=== PATIENT | male | born 2000 | race Caucasian/White ===

== ENCOUNTER 2021-02-10 11:48 | Outpatient (REF) | payer OTHER, SELFPAY ==
--- NOTE | ~2021-02-10 | XR_ITS ---
EXAMINATION: XR SHOULDER, RIGHT CLINICAL INFORMATION: Pain in right shoulder COMPARISON: None TECHNIQUE: AP external rotation, Grashey, scapular Y, and axillary views of the right shoulder. FINDINGS: The bones and soft tissues are normal. No fracture. Glenohumeral and acromioclavicular alignment is anatomic with normal joint space. No abnormal soft tissue calcifications. XR/XR shoulder RT min 2V IMPRESSION: Normal right shoulder.
== END 2021-02-10 11:49 | disposition home or self-care (01) ==
LOC: HO.HMGCX 11:48
PROVIDERS: PCP Internal Medicine; Visit Provider Internal Medicine
DX: Z13.89 Encounter for screening for other disorder (principal)
CPT/HCPCS: 73030

== ENCOUNTER → 2021-03-24 14:47 | Outpatient (BNVA) | payer OTHER, SELFPAY | PROVIDERS: Visit Provider Physician Assistant | DX: M75.101 Unspecified rotator cuff tear or rupture of right shoulder, not specified as traumatic (principal) | CPT/HCPCS: 99202 ==

== ENCOUNTER 2021-04-13 14:22 | Outpatient (REF) | payer OTHER, SELFPAY ==
--- NOTE | ~2021-04-13 | MR_ITS ---
EXAMINATION: MR SHOULDER WITHOUT CONTRAST, RIGHT CLINICAL INFORMATION: Right shoulder injury in July 2020. Pain, decreased strength, weakness, finger paresthesias. Evaluate for a rotator cuff tendon tear. COMPARISON: Right shoulder radiographs dated 02/10/2021. TECHNIQUE: MRI of the shoulder without contrast was performed on a high-field scanner. FINDINGS: ROTATOR CUFF: Intact. No muscle atrophy or fatty infiltration. BICEPS: Normal. CORACOACROMIAL ARCH: The undersurface of the acromion is curved with no subacromial spur. The acromioclavicular joint is normal. LABRUM/CAPSULE: Normal. GLENOHUMERAL JOINT/MARROW: Normal. MR/MR shoulder RT wo con IMPRESSION: Unremarkable examination. No rotator cuff or labral injury.
== END 2021-04-13 14:23 | disposition home or self-care (01) ==
LOC: HO.MRI 14:22
PROVIDERS: PCP Internal Medicine; Visit Provider Physician Assistant
DX: M75.101 Unspecified rotator cuff tear or rupture of right shoulder, not specified as traumatic (principal)
CPT/HCPCS: 73221

== ENCOUNTER → 2021-04-24 13:18 | Outpatient (BNVA) | payer OTHER, SELFPAY | PROVIDERS: PCP Internal Medicine; Visit Provider Physician Assistant | DX: S43.431D Superior glenoid labrum lesion of right shoulder, subsequent encounter (principal) | CPT/HCPCS: 99212 ==

== ENCOUNTER 2021-05-05 15:00 | Outpatient (RCR) | payer OTHER, SELFPAY ==
--- NOTE | 2020-12-06 15:39 | MHC.PT.EP ---
[facility] [place] Office [place] Office [place] Office [address] [phone] F: [phone] F: [phone] F: [phone] F: [phone] Physical Therapy Plan of Care Date of Evaluation: Date of Surgery: Diagnosis: This is a 20 yo male presenting to skilled PT with a script for pain in the R shoulder Assessment: Patient is here at eval today reporting pain that is intermittent when lifting or pushing OH since a fall snowboarding last winter (July). Feel onto the shoulder. Unable to lift right after the injury but did not go to MD until last month. No imaging. Never injured this prior. RHD. Does not remember than popping or clicking but did have bruising. Examination demos decreased end range shoulder flexion and abduction ROM, impaired IR with scratch test and inferior glide, decreased shoulder flexion/abd and scapular strength and + for ACJ special tests. S/S ? ACJ involvement. Patient works for [employer] and is going away for a 2 week training x2. Plan to introduce HEP next session in the mean time and perform a reassessment when he returns. He is a great candidate for skilled PT 2x/wk for 6wks in order to improve functional end range motion, pain and joint mobility. Frequency and Duration: The patient will be seen 2x/wk for 6wks Short Term Goals: I in HEP End range ROM WNL and nonpainful proper scapular recruitment without cuing from PT Fpc Goals: scapular strength of 4+/5 SPADI improved by at least 10 points demo lifting and reaching with proper techniques and no pain Treatment Plan: Modalities to reduce pain, spasms and effusion. Manual therapy to restore motion and function. Therapeutic exercise to improve strength and flexibility. Neuromuscular re-education for posture and balance. Therapeutic activities to return to functional activities of daily living. Electronically signed by: Halima Samaniego PT Please sign and return to therapist. Thank you for your referral.
--- NOTE | 2021-05-05 15:57 | MHC.PT.DC ---
[facility] [place] Office [place] Office [place] Office [address] Michelle [place] 140 [facility] [phone] F: [phone] F: [phone] F: [phone] F: [phone] Physical Therapy Discharge Report Diagnosis: This is a 20 yo male presenting to skilled PT with a script for pain in the R shoulder Date of Surgery: Date of Evaluation: 12/06/20 Date of Discharge: 05/05/21 Treatments to Date: 24 Cancellations to Date: 3 No Shows to Date: 1 Discharge Status: Achieved Goals Improved Function Independent with HEP Physician Discontinued Tx Discharge Summary: Patient demos normal ROM and good strength. He will be getting exploratory surgery. Educated him on continuing HEP in the mean time to maintain gains in strength prior to surgery. DC to HEP at this time. Patient has met most of his goals. Electronically signed by: Halima Samaniego PT Please sign and return to therapist. Thank you for your referral.
== END 2021-05-05 15:57 | disposition home or self-care (01) ==
LOC: HO.PTCHIC 15:00
PROVIDERS: PCP Internal Medicine; Visit Provider Internal Medicine
DX: M25.511 Pain in right shoulder (principal)
CPT/HCPCS: 97110; 97140; 97161; 97164

== ENCOUNTER 2021-06-06 07:20 | Day surgery (SDC) | payer OTHER, SELFPAY ==
--- NOTE | 2021-06-05 15:18 | P.CONAN_ITS ---
Documented by User: Reshma Chau NP 06/05/21 15:18 HPI - Anesthesia Eval Consult details Narrative: 20yo M for Right Shoulder Capsular Pilcation Arthroscopy [facility] Active Problems Active Problems: All Active Problems (Updated 04/24/21 @ 15:12 by Annelise Goel PA-C) Injury of superior glenoid labrum of right shoulder (Acute) Painful arc syndrome of right shoulder (Acute) Knee pain, right (Acute) Annual physical exam (Acute) Right shoulder pain (Acute) Past Medical History Medical History (Updated 06/06/21 @ 07:52 by Daniela Peralta RN) Annual physical exam Finger abrasion Knee pain, right Right shoulder pain Family History Family History Father No problems noted. Mother No problems noted. Surgical History Surgical History (Updated 06/06/21 @ 07:52 by Daniela Peralta RN) H/O wisdom tooth extraction Social History Social History Household Members Other:: in 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 Meds Allergies Allergy/AdvReac Type Severity Reaction Status Date / Time No Known Allergies Allergy Verified 06/06/21 07:53 Home Medications Medication Instructions Recorded Confirmed Last Taken Type No Known Home Meds 11/01/20 02/10/21 Unknown History Exam Exam Date and Time: June 05, 2021 1518 Assessment and Plan Assessment Anesthesia Assessment: Chart Reviewed Documented by User: Herminio Zuniga MD 06/06/21 10:28 [facility] Past Medical History Medical History (Updated 06/06/21 @ 07:52 by Daniela Peralta RN) Annual physical exam Finger abrasion Knee pain, right Right shoulder pain Family History Family History Father No problems noted. Mother No problems noted. Family history of problems with anesthesia: No Surgical History Surgical History (Updated 06/06/21 @ 07:52 by Daniela Peralta RN) H/O wisdom tooth extraction History of Problems with Anesthesia: No Social History Social History Household Members Other:: in 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 Meds Allergies Allergy/AdvReac Type Severity Reaction Status Date / Time No Known Allergies Allergy Verified 06/06/21 07:53 Home Medications Medication Instructions Recorded Confirmed Last Taken Type No Known Home Meds 11/01/20 02/10/21 Unknown History Exam Airway Mallampati Class: II TM Dist: >3cm Neck ROM: Full Loose/Missing/Broken Teeth: No Assessment and Plan Assessment Anesthesia Assessment: Anesthesia Plan Discussed Final Anesthetic Review Family History of Problems with Anesthesia: No History of Problems with Anesthesia: No NPO: Yes ASA Class: I Final Preanesthetic Review: No Changes in Pt Med Stat, Meds/Allgs Chart Reviewed, Consent Obtained/Reviewed and Anes Risks/Benef Reviewed Patient Risk: Low Procedure Risk: Intermediate Anesthetic Plan Anesthetic Plan: GA and Regional Block Disposition: Standard PACU
[2021-06-06] VITALS (20 sets, daily range): BP systolic 102–150; BP diastolic 47–91; PULSE 59–102; RESP 12–16; TEMP 36.9–37.3; O2SAT 94–99; BMI 28.8
[2021-06-06] MEDS: Lactated Ringers 1,000 ML 100 ML IVCONT (08:16)
--- NOTE | 2021-06-06 09:00 | MHC.SHP ---
Pre-Procedural Eval Section A Date of Service: 06/06/21 The patient is an INPATIENT: No Changes since office visit: Yes Patient answered all questions; No Cold of Flu in the past 2 weeks, No New Medical Problems and No Changes in Medication The History & Physical has been completed within 30 days and I have reviewed it.: Yes Section B Chief Complaint: Superior Glenoid Labrum Lesion Allergies: Allergies Allergy/AdvReac Type Severity Reaction Status Date / Time No Known Allergies Allergy Verified 06/06/21 07:53 Plan I have reviewed the history and physical and performed a pertinent physical examination on my patient. No changes have occurred unless specified.
--- NOTE | 2021-06-06 12:03 | PM.OP ---
Brief Operative Note Date of Service: 06/06/21 Pre-op diagnosis: right shoulder instability Post-op diagnosis: same Procedure: RIght shoulder capsular plication Implants: Sheikh and Nephew knotless micro raptor x 2 Surgeon: Adrian Travis MD Anesthesia: GETA and regional Was an Health And Safety Technician used for this Procedure?: Yes Health And Safety Technician: Sadie Donaldson Estimated blood loss (mL): 25 IV fluids (mL): 1,000 Pathology: none sent Condition: stable Disposition: PACU
[2021-06-06] MEDS: oxyCODONE HCl Immed Release 5 MG TABLET PO (13:17)
[2021-06-06] MEDS: Acetaminophen 325 MG TABLET 650 MG PO (13:17)
--- NOTE | 2021-06-06 14:07 | PC.NURSE ---
PT WAS BROUGHT OUT TO DISCHARGE AREA AND WAS DOING FINE. PATIENT GIVEN CRACKERS AND WATER PER HIS REQUEST. PT ALL OF A SUDDEN STATED FEELING HOT AND GOT PALE. PT GIVEN COOL CLOTH AND ANESTHESIA ADVISED. PT BROUGHT BACK TO PACU AND ASSISTED IN STRETCHER. PT VAGALLED PER ANESTHESIOLOGIST. PT PLACED ON MONITOR FOR FURTHER MONITORING. PT'S RIDE WAS ADVISED.
[2021-06-06] MEDS: HYDROmorphone HCl 0.5 MG/0.5 ML SYRINGE 0.25 MG IVPUSH (14:42)
--- NOTE | 2021-06-07 10:59 | P.OP_ITS ---
Operative Note Operative Note Date of Service: 06/06/21 Narrative: Date of Service: 06/06/21 Pre-op diagnosis: right shoulder instability Post-op diagnosis: same Procedure: RIght shoulder capsular plication Implants: Sheikh and Nephew knotless micro raptor x 2 Surgeon: Adrian Travis MD Anesthesia: GETA and regional Was an Gas Leak Inspector Helper used for this Procedure?: Yes Gas Leak Inspector Helper: Sadie Donaldson Estimated blood loss (mL): 25 IV fluids (mL): 1,000 Pathology: none sent Condition: stable Disposition: PACU Procedure in detail: Patient was brought to the operating room and placed the the beach chair position. All bony prominences were well padded and the limb was prepped and draped in standard sterile fashion. A time out was called to identify proper site, proper procedure and proper surgeon. IV antibiotics per weight were administered. I began by making a posterolateral stab incision with a 15 blade. A blunt trochar was placed into the glenohumeral joint and I insufflated the joint with saline and a 30 degree arthroscope was placed. I established an outside- in low anterior portal just proximal to the subscapularis tendon. I then began my inspection of the glenohumeral joint. there was no labral or undersurface rotator cuff tearing. There was a positive drive-through sign and a Hill-Sachs lesion with some mild chondromalacia of the anterior glenoid. I began by grabbing capsule and portion of the inferior glenohumeral ligament at the 5 o'clock position and then brought this proximally to a Sheikh and Nephew micro raptor suture at the 4 o'clock position. I then repeated this at the 3 o'clock position again using 2 fiber tape and a micro raptor. I was satisfied with the anterior bumper established and there was no longer a positive drive-through sign. I then removed the trochar and entered the subacromial space. A direct lateral portal was then established and I performed a bursectomy. The cuff was then examined and was normal. Once I was satisfied with the repair final images were captured and I removed all instrumentation. Portals were closed with nylon. Patient was placed in an abduction sling, extubated and brought to the recovery room in stable condition. There were no known complications.
== END 2021-06-06 17:51 | disposition home or self-care (01) ==
PROVIDERS: PCP Internal Medicine; Visit Provider Orthopaedic Surgery
PROC: (CPT 29805; principal; 2021-06-06 09:00)
DX: S43.431A Superior glenoid labrum lesion of right shoulder, initial encounter (principal); M25.311 Other instability, right shoulder; M25.511 Pain in right shoulder; Y93.23 Activity, snow (alpine) (downhill) skiing, snowboarding, sledding, tobogganing and snow tubing; Y93.9 Activity, unspecified; Y92.9 Unspecified place or not applicable; Y99.9 Unspecified external cause status
CPT/HCPCS: 29806; J0171; J0690; J1100; J1170; J1885; J2250; J2405; J3010

== ENCOUNTER → 2021-06-12 10:59 | Outpatient (BNVA) | payer OTHER, SELFPAY | PROVIDERS: PCP Internal Medicine; Visit Provider Physician Assistant | DX: S43.431D Superior glenoid labrum lesion of right shoulder, subsequent encounter (principal) | CPT/HCPCS: 99212 ==

== ENCOUNTER → 2021-07-12 12:52 | Outpatient (BNVA) | payer OTHER, SELFPAY | PROVIDERS: PCP Internal Medicine; Visit Provider Physician Assistant | DX: S43.431D Superior glenoid labrum lesion of right shoulder, subsequent encounter (principal) | CPT/HCPCS: 99212 ==

== ENCOUNTER 2021-10-18 13:00 | Outpatient (RCR) | payer OTHER, SELFPAY ==
--- NOTE | 2021-06-12 14:37 | MHC.PT.EP ---
[facility] [place] Office [place] Office [place] Office [address] Michelle [place] [address] [phone] F: [phone] F: [phone] F: [phone] F: [phone] Physical Therapy Plan of Care Date of Evaluation: Date of Surgery: 06/06/21 Diagnosis: S/P LABRAL REPAIR Assessment: AMAIRANI PRESENTS S/P LABRAL REPAIR ON 06/06/21. UPON EXAM HE DEMONSTRATES THE EXPECTED DECREASE IN ROM AND STRENGTH, ALTERED POSTURE, POSITIONING AND INCREASED PAIN/EDEMA. FUNCTIONAL LIMITATIONS INCLUDE DECREASED ABILITY TO PERFORM HOMEMAKING AND SELF CARE TASKS, PUSHING, PULLING,LIFTING AND REACHING. HE REPORTS DECREASED ABILITY TO PERFORM WORK TASKS AND DECREASED PARTICIPATION IN RECREATIONAL AND FITNESS ACTIVITIES, DISRUPTED SLEEP. A PT IS A GOOD CANDIDATE FOR SKILLED PT DUE TO AGE, POTENTIAL REMEDIATION OF IMPAIRMENTS, TYPICAL DISEASE/CONDITION PROGRESSION AND PROGNOSIS, COMORBIDITIES, AND MOTIVATION. PT WOULD BENEFIT FROM TAILORED PROGRAM OF THERAPEUTIC ACTIVITIES, FUNCTIONAL TRAINING, GAIT TRAINING, POSTURAL EDUCATION, NEUROMUSCULAR RE-EDUCATION, AND MODALITIES NEEDED. 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 Manual therapy to restore motion and function. Therapeutic exercise to improve strength and flexibility. Neuromuscular re-education for posture and balance. Therapeutic activities to return to functional activities of daily living. Electronically signed by: YORDY CABRAL PT, DPT Please sign and return to therapist. Thank you for your referral.
--- NOTE | 2021-07-25 12:01 | MHC.PT.RE ---
[facility] [place] Office [place] Office [place] Office [address] Michelle [place] [address] [phone] F: [phone] F: [phone] F: [phone] F: [phone] Physical Therapy Re-evaluation Diagnosis: S/P LABRAL REPAIR Date of Surgery: 06/06/21 Date of Evaluation: 06/12/21 Treatments to Date: 12 Cancellations to Date: 0 No Shows to Date: 0 Subjective: I still can't reach behind my back Pain Score: 2-910 Pain Location: bicep Objective Measures: SPADI: 30 pain score, disability 33 Pain: 2/10 at the best, 9/10 (reports ring finger tingling with OH motions), pain is located surrounding GHJ and is dull/constant, lat is described as pulling, medial border of scap is tight R AROM shoulder: flexion 160 with tight lats noted, abduction 135 tight lats noted, ER 50 in 90, IR 50 in 90, extension 55 R MMT shoulder: flexion 4/5, abduction 4/5, ER 4-/5 abducted to 90 (4/5 by side), IR 4/5 (arm by side and abducted), extension 4/5 R MMT scap: lower trap 4/5, middle trap 3+/5, upper trap 3-/5 IR test to L4, ER test to C7 Assessment: 07/25: Flavio is progressing well with therapy. We have progressed through the protocol and has improved general function. He is no longer in his abduction sling. He continues to be shaky and has decreased strength. Flavio has returned to work at light duty. He is going to return to ortho in about a month. As he is still lacking full ROM, strength, has high levels of pain and is not back to work in full I feel that he would benefit from continuing PT 2x/wk for 5wks Short Term Goals: To place object at minimum of 5# into cabinet at shoulder height in 2 weeks Custodial Goals: Full, pain free ROM in 5 weeks Full UE strength, pain free in 5 weeks To perform work tasks without restriction and pain no greater than 2/10 in 5 weeks Frequency and Duration: The patient will be seen 2x/wk for 5wks Treatment Plan: Therapeutic Exercise Dynamic Therapeutic Activities Neuromuscular Re-ed Manual Therapies Joint Mobilization Taping Home Exercise Program Patient Education Electrical Stimulation Hot or Cold Pack BEGIN P/AA ROM, SCAPULAR STRENGTHENING Reviewed/ Agreed with Student Documentation: Therapist: Electronically signed by: Halima Samaniego PT Please sign and return to therapist. Thank you for your referral.
--- NOTE | 2021-10-18 14:13 | MHC.PT.DC ---
[facility] [place] Office [place] Office [place] Office [address] Michelle [place] [address] [phone] F: [phone] F: [phone] F: [phone] F: [phone] Physical Therapy Discharge Report Diagnosis: S/P LABRAL REPAIR Date of Surgery: 06/06/21 Date of Evaluation: 06/12/21 Date of Discharge: 10/18/21 Treatments to Date: 24 Cancellations to Date: 0 No Shows to Date: 0 Discharge Status: Achieved Goals Improved Function Independent with HEP Discharge Summary: Patient had 24 visit of PT, he demos WFL strength and WNL ROM. He has no pain with any high level dynamic ther-ex and does not complain of pain throughout his day either. He was educated on importance of continuing HEP and strengthening. He is I and ready for DC. DC to HEP. Electronically signed by: Halima Samaniego PT Please sign and return to therapist. Thank you for your referral.
== END 2021-10-18 14:13 | disposition home or self-care (01) ==
LOC: HO.PTCHIC 13:00
PROVIDERS: PCP Internal Medicine; Visit Provider Orthopaedic Surgery
DX: S43.431D Superior glenoid labrum lesion of right shoulder, subsequent encounter (principal)
CPT/HCPCS: 97014; 97110; 97140; 97161; 97164

== ENCOUNTER 2023-09-11 11:49 | Outpatient (AMB) | payer OTHER, SELFPAY ==
[2023-09-11 12:09] VITALS: BP 130/78; PULSE 74; O2SAT 97; BMI 32.2
--- NOTE | 2023-09-11 12:09 | MHC.PC.OV ---
Vital Signs 09/11/23 12:09 Height 6 ft 3 in Weight 257 lb 8 oz BMI 32.2 BP 130/78 Blood Pressure Location Rt brachial Position Sitting Pulse 74 Pulse Source Pulse Oximeter Pulse Oximetry (%) 97 Oxygen Delivery Method Room Air Intake Visit Reasons: shoulder pain,allergy testing, update on medical Allergies No Known Allergies Allergy (Verified 09/11/23 12:10) Medication List - Last Reconciled 09/11/23 by Angy Rock MD No Known Home Meds Tobacco use date assessed: 09/11/23 Dental Screening Dental Screen Date: 09/11/23 Did you have a dental visit in the last 12 months?: Yes Did you have a dental problem in the last 6 months where you did not have access to dental care?: No Was dental information given to patient?: Patient has dentist HPI HPI Comments History of Present Illness Details Pt presents for PE. Patient complains of chronic allergy symptoms sneezing itchy eyes runny nose on and off usually worse in the springtime. he would like to be referred to communications administrator. [facility] Medical History Finger abrasion Knee pain, right Annual physical exam Right shoulder pain Surgical History H/O wisdom tooth extraction Family History Father No problems noted. Mother No problems noted. 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 1. Little interest or pleasure in doing things: not at all 2. Feeling down, depressed, or hopeless: not at all 3. Trouble falling or staying asleep, or sleeping too much: more than half the days 4. Feeling tired or having little energy: not at all 5. Poor appetite or overeating: not at all 6. Feeling bad about yourself - or that you are a failure or have let yourself or your family down: not at all 7. Trouble concentrating on things, such as reading the newspaper or watching television: not at all 8. Moving or speaking so slowly that other people could have noticed. Or the opposite - being so fidgety or restless that you have been moving around a lot more than usual: not at all 9. Thoughts that you would be better off or of hurting yourself in some way: not at all Total score: 2 Depression Screening Interpretation: Negative Depression Screening Done: Yes Source: Developed by Drs. Rigoberto Michel, Ml Avina, Reece Sierra and colleagues, with an educational cristo from [employer]. Thrive Questionnaire Date Thrive assessed: 09/11/23 I am a: Patient What is your living situation today?: I have a steady place to live Within the past 12 months, did the food you bought not last and you didn't have the money to get more?: Never true Within the past 12 months, did you worry whether your food would run out before you got money to buy more?: Never true Do you have trouble paying for medicines?: No Do you have trouble getting transportation to medical appointments?: No Do you have trouble paying your heating and electricity bill?: No Do you have trouble taking care of your child, family member or friend?: No Do you have trouble with day-to-day activities such as bathing, preparing meals, shopping, managing finances, etc.?: No Are you currently unemployed and looking for a job?: No Are you interested in more education?: Yes Please select the resources that you would like help with: Education THRIVE Score: 0 AUDIT C Alcohol Use Questionnaire (AUDIT-C) 1. How often do you have a drink containing alcohol?: Monthly or less 2. How many drinks containing alcohol do you have on a typical day when you are drinking?: 1 or 2 3. How often do you have six or more drinks on one occasion?: Never Total Score: 1 Score Reviewed/Action Taken: Yes LIDIA-7 AMB Questionnaire LIDIA-7 Date LIDIA - 7 assessed: 09/11/23 Feeling nervous, anxious, or on edge: 0 = Not at all Not being able to stop or control worryin = Not at all Worrying too much about different things: 0 = Not at all Trouble relaxin = Not at all Being so restless that it is hard to sit still: 0 = Not at all Becoming easily annoyed or irritable: 0 = Not at all Feeling afraid as if something awful might happen: 0 = Not at all Total LIDIA-7 score (0-4 normal; 5-9 mild; 10-14 moderate; 15-21 severe): 0 Source: Developed by Drs. Rigoberto Michel, Ml Avina, Reece Sierra and colleagues, with an educational cristo from [employer]. Review of Systems Const All systems reviewed & are unremarkable except as noted in HPI and below Eyes Reports no additional complaints ENT Reports no additional complaints Card Reports no additional complaints Resp Reports no additional complaints GI Reports no additional complaints Reports no additional complaints Physical exam (Primary Care) Vital Signs: Last Vital Signs Pulse 74 09/11/23 12:09 BP 130/78 09/11/23 12:09 Pulse Ox 97 09/11/23 12:09 Oxygen Delivery Method Room Air 09/11/23 12:09 BMI result Body Mass Index 32.2 Tobacco/Smoking Status: Tobacco use Status Tobacco use date assessed 09/11/23 09/11/23 12:12 Patient Tobacco Use Status Never used Tobacco 09/11/23 12:58 e-Cigarette/Vaping Use Never Used 09/11/23 12:58 PHQ-9: PHQ-9 Score PHQ-9: Total score 2 09/11/23 12:59 Depression Screening Interpretation: Negative Thrive Assessment: Date of Thrive Assessment Date Thrive assessed 09/11/23 09/11/23 12:59 Const General: no acute distress HENMT Head: Yes normal to inspection Mouth: Normal oral and palatal mucosa present Eyes General: appearance normal, both eyes and all related structures Neck Neck: Yes no lymphadenopathy and Yes supple Resp Effort & Inspection: normal respiratory effort Auscultation: clear to auscultation bilaterally Cardio Rhythm: regular rhythm Heart sounds: S1 normal heart sound present and S2 normal heart sound present GI Inspection: Yes normal to inspection Palpation (GI): Soft to palpation Percussion: Yes normal to percussion Auscultation: normal bowel sounds Assessment and Plan Assessment & Plan (1) Rhinitis, allergic: Code(s): J30.9 - Allergic rhinitis, unspecified Plan: Referred to communications administrator (2) Annual physical exam: Code(s): Z00.00 - Encounter for general adult medical examination without abnormal findings Orders: Referrals Allergy & Immunology Referral J30.9 - Allergic rhinitis, unspecified Patient Instructions: Well-balanced diet regular physical activity discussed with the patient. Patient had blood work done at work and will obtain a copy. Coding Level of Care Code Est Pt Prev Care 18-39y(06113) Diagnoses Rhinitis, allergic J30.9 Annual physical exam Z00.00
== END 2023-09-11 14:56 | disposition home or self-care (01) ==
PROVIDERS: PCP Internal Medicine; Visit Provider Internal Medicine
DX: J30.9 Allergic rhinitis, unspecified (principal); Z00.00 Encounter for general adult medical examination without abnormal findings
CPT/HCPCS: 99395

== ENCOUNTER 2024-01-30 09:55 | Outpatient (AMB) | payer OTHER, SELFPAY ==
--- NOTE | 2024-01-30 10:08 | MHC.PC.OV ---
Vital Signs 01/30/24 10:09 Height 6 ft 3 in Weight 257 lb BMI 32.1 BP 120/80 Blood Pressure Location Lt brachial Position Sitting Pulse 83 Pulse Source Pulse Oximeter Pulse Oximetry (%) 97 Oxygen Delivery Method Room Air Intake Visit Reasons: Covid follow up Intake Note: Pt is here today for a follow up visit after Covid. Allergies No Known Allergies Allergy (Verified 01/30/24 10:12) Medication List - Last Reconciled 01/30/24 by Angy Rock MD COVID-19 antigen test As directed for COVID symptoms Tobacco use date assessed: 01/30/24 Dental Screening Dental Screen Date: 09/11/23 HPI Covid follow up HPI Details Pt c/o chest tightness and CHIN for 1 week after self diagnosed with positive Covid test 1 week ago. Patient denies fever chills night sweats sputum production palpitations pleurisy. ON LICENSE OF [facility] Medical History Finger abrasion Knee pain, right Annual physical exam Right shoulder pain Surgical History H/O wisdom tooth extraction Family History Father No problems noted. Mother No problems noted. 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 1. Little interest or pleasure in doing things: not at all 2. Feeling down, depressed, or hopeless: not at all 3. Trouble falling or staying asleep, or sleeping too much: several days 4. Feeling tired or having little energy: more than half the days 5. Poor appetite or overeating: not at all 6. Feeling bad about yourself - or that you are a failure or have let yourself or your family down: not at all 7. Trouble concentrating on things, such as reading the newspaper or watching television: not at all 8. Moving or speaking so slowly that other people could have noticed. Or the opposite - being so fidgety or restless that you have been moving around a lot more than usual: not at all 9. Thoughts that you would be better off or of hurting yourself in some way: not at all Total score: 3 Depression Screening Interpretation: Negative Depression Screening Done: Yes 96362 - PHQ-9 Billing: Yes Source: Developed by Drs. Rigoberto Michel, Ml Avina, Reece Sierra and colleagues, with an educational cristo from [employer]. Thrive Questionnaire Date Thrive assessed: 09/11/23 I am a: Patient What is your living situation today?: I have a steady place to live Within the past 12 months, did the food you bought not last and you didn't have the money to get more?: Never true Within the past 12 months, did you worry whether your food would run out before you got money to buy more?: Never true Do you have trouble paying for medicines?: No Do you have trouble getting transportation to medical appointments?: No Do you have trouble paying your heating and electricity bill?: No Do you have trouble taking care of your child, family member or friend?: No Do you have trouble with day-to-day activities such as bathing, preparing meals, shopping, managing finances, etc.?: No Are you currently unemployed and looking for a job?: No Are you interested in more education?: No Please select the resources that you would like help with: None Currently or been in a relationship where the following occur: No concerns reported THRIVE Score: 0 AUDIT C Alcohol Use Questionnaire (AUDIT-C) 1. How often do you have a drink containing alcohol?: Monthly or less 2. How many drinks containing alcohol do you have on a typical day when you are drinking?: 3 or 4 3. How often do you have six or more drinks on one occasion?: Less than monthly Total Score: 3 LIDIA-7 AMB Questionnaire LIDIA-7 Date LIDIA - 7 assessed: 09/11/23 Feeling nervous, anxious, or on edge: 0 = Not at all Not being able to stop or control worryin = Not at all Worrying too much about different things: 0 = Not at all Trouble relaxin = Not at all Being so restless that it is hard to sit still: 0 = Not at all Becoming easily annoyed or irritable: 0 = Not at all Feeling afraid as if something awful might happen: 0 = Not at all Total LIDIA-7 score (0-4 normal; 5-9 mild; 10-14 moderate; 15-21 severe): 0 Source: Developed by Drs. Rigoberto Michel, Ml Avina, Reece Sierra and colleagues, with an educational cristo from [employer]. Review of Systems Const All systems reviewed & are unremarkable except as noted in HPI and below Eyes Reports no additional complaints ENT Reports no additional complaints Card Reports no additional complaints Resp Reports no additional complaints GI Reports no additional complaints Reports no additional complaints Physical exam (Primary Care) Vital Signs: Last Vital Signs Pulse 83 01/30/24 10:09 BP 120/80 01/30/24 10:09 Pulse Ox 97 01/30/24 10:09 Oxygen Delivery Method Room Air 01/30/24 10:09 BMI result Body Mass Index 32.1 Tobacco/Smoking Status: Tobacco use Status Tobacco use date assessed 01/30/24 01/30/24 10:12 Patient Tobacco Use Status Never used Tobacco 01/30/24 10:10 e-Cigarette/Vaping Use Never Used 01/30/24 10:10 PHQ-9: PHQ-9 Score PHQ-9: Total score 3 01/30/24 10:12 Depression Screening Interpretation: Negative Thrive Assessment: Date of Thrive Assessment Date Thrive assessed 09/11/23 01/30/24 10:10 Currently or been in a relationship where the following occur: No concerns reported Const General: no acute distress HENMT Head: Yes normal to inspection Face and sinus: Yes normal facial exam Eyes General: appearance normal, both eyes and all related structures Neck Neck: Yes no lymphadenopathy and Yes supple Resp Effort & Inspection: normal respiratory effort Auscultation: clear to auscultation bilaterally Cardio Rhythm: regular rhythm Heart sounds: S1 normal heart sound present and S2 normal heart sound present Assessment and Plan Assessment & Plan (1) SOB (shortness of breath): Code(s): R06.02 - Shortness of breath Plan: O2 sat after 5 minutes walk is 99%. Chest x-ray will be obtained and supportive care discussed with the patient. If his symptoms persist he was advised to call in 1 week Orders: Orders XR chest 1V Today R06.02 - Shortness of breath Coding Level of Care Code Est Pt Level 3 (25170) Diagnoses SOB (shortness of breath) R06.02
[2024-01-30 10:09] VITALS: BP 120/80; PULSE 83; O2SAT 97; BMI 32.1
== END 2024-01-30 11:00 | disposition home or self-care (01) ==
PROVIDERS: PCP Internal Medicine; Visit Provider Internal Medicine
DX: R06.02 Shortness of breath (principal)
CPT/HCPCS: 99213

== ENCOUNTER 2024-01-30 11:03 | Outpatient (REF) | payer OTHER, SELFPAY ==
--- NOTE | ~2024-01-30 | XR_ITS ---
EXAMINATION: XR CHEST CLINICAL INFORMATION: Shortness of breath COMPARISON: None available. TECHNIQUE: 2 views of the chest were obtained. FINDINGS: No significant abnormality is noted involving the heart, lungs, mediastinum, bony thorax or soft tissues. XR/XR chest 2V IMPRESSION: Normal examination. Electronically signed by: Hiro Pizarro MD 02/01/2024 08:03 PM EDT
== END 2024-01-30 11:04 | disposition home or self-care (01) ==
LOC: HO.HMGCX 11:03
PROVIDERS: PCP Internal Medicine; Visit Provider Internal Medicine
DX: R06.02 Shortness of breath (principal)
CPT/HCPCS: 71046

== ENCOUNTER 2024-04-09 12:46 | Outpatient (AMB) | payer OTHER, SELFPAY ==
[2024-04-09 13:14] VITALS: BP 110/76; PULSE 69; O2SAT 98
--- NOTE | 2024-04-09 13:14 | MHC.OFFWIV ---
Intake Vital Signs 04/09/24 13:14 Weight 265 lb BP 110/76 Blood Pressure Location Rt brachial Position Sitting Pulse 69 Pulse Source Pulse Oximeter Pulse Oximetry (%) 98 Oxygen Delivery Method Room Air Intake Visit Reasons: EP LT ear pain Intake Note: Patient here for left ear pain that has been present for about 4-5 days. Patient Tobacco Use Status: Never used Tobacco Allergies No Known Allergies Allergy (Verified 04/09/24 13:15) Do you need a note to return to daycare/school/sports/work: No HPI EP LT ear pain HPI Details This note is constructed using voice recognition software. While every effort has been made to ensure accuracy, audio production manager errors may have been included. The patient is a 23 year old male who presents to the clinic today with left ear pain for the last 4-5 days. He denies fever, chills, cough, shortness of breath, or other URI symptoms. He does not stick anything in the ear. He reports his hearing to be unchanged. He has not tried anything to resolve the pain. Nothing seems to make it worse, nothing seems to make it better. [facility] Medical History Finger abrasion Knee pain, right Annual physical exam Right shoulder pain Surgical History H/O wisdom tooth extraction Family History Father No problems noted. Mother No problems noted. Social History Household Members Other:: in , family in [place], Housing: [facility] Alcohol intake: current Alcohol intake frequency: a few times a month Patient Tobacco Use Status: Never used Tobacco e-Cigarette/Vaping Use: Never Used service: Yes Current occupational status: employed Current occupation: active /rt hand Cognitive needs: No Hearing needs: No Vision needs: Yes Review of Systems Const All systems reviewed & are unremarkable except as noted in HPI and below Physical Exam Vital Signs: Last Vital Signs Pulse 69 04/09/24 13:14 BP 110/76 04/09/24 13:14 Pulse Ox 98 04/09/24 13:14 Oxygen Delivery Method Room Air 04/09/24 13:14 Const General: cooperative, healthy appearing, comfortable and no acute distress Orientation/consciousness: patient oriented x3 HEENT Head: Yes normal to inspection, Yes No palpable skull fracture present and Yes normocephalic Ears: hearing grossly normal bilaterally, external ears normal, EAC's normal, mastoids normal (no TTP) bilaterally and TM abnormal (Left) bulging, erythematous and with fluid behind the TM (Thick white) General nose exam: Normal external nose present Face and sinus: Yes normal facial exam Mouth: Normal oral and palatal mucosa present Teeth and gingiva: dentition normal Throat: Yes posterior oropharynx normal Eyes General: appearance normal, both eyes and all related structures Neck Neck: Yes normal visual inspection, Yes full ROM, Yes no lymphadenopathy, Yes no meningeal signs, Yes trachea midline and Yes supple Resp Effort & Inspection: normal respiratory effort and able to speak in complete sentences Skin General skin exam: no rashes or lesions noted Neuro General: patient oriented x3 and no meningeal signs Assessment & Plan Assessment & Plan (1) Otitis media: Code(s): H66.90 - Otitis media, unspecified, unspecified ear Qualifiers: Otitis media type: suppurative Chronicity: acute Laterality: left Recurrence: non-recurrent Spontaneous tympanic membrane rupture: without spontaneous rupture Qualified Code(s): H66.002 - Acute suppurative otitis media without spontaneous rupture of ear drum, left ear Plan: Supportive measures encouraged and reviewed. Antibiotic sent to requested pharmacy, advised patient to take antibiotics until completed and not to stop if feeling better, unless the patient has side effects. Advised patient to follow up with primary care provider with worsening or failure to resolve. Plan See above for full details and plan. Medications: New amoxicillin-pot clavulanate 875-125 mg 1 tab PO BID 7 days 14 tabs 0RF Coding Level of Care Code Est Pt Level 3 (54321) Diagnoses Non-recurrent acute suppurative otitis media of left ear without spontaneous rupture of tympanic membrane H66.002 Otitis media type: suppurative Chronicity: acute Laterality: left Recurrence: non-recurrent Spontaneous tympanic membrane rupture: without spontaneous rupture
== END 2024-04-09 14:12 | disposition home or self-care (01) ==
PROVIDERS: PCP Internal Medicine; Visit Provider Registered Nurse
DX: H66.002 Acute suppurative otitis media without spontaneous rupture of ear drum, left ear (principal)

== ENCOUNTER → 2024-04-09 12:46 | Outpatient (BNVA) | payer OTHER, SELFPAY | PROVIDERS: PCP Internal Medicine; Visit Provider Registered Nurse | DX: H66.002 Acute suppurative otitis media without spontaneous rupture of ear drum, left ear (principal) | CPT/HCPCS: 99212 ==

== ENCOUNTER 2024-04-20 09:25 | Outpatient (AMB) | payer OTHER, SELFPAY ==
--- NOTE | 2024-04-20 09:45 | MHC.OFFWIV ---
Intake Vital Signs 04/20/24 09:47 Weight 265 lb BP 130/88 Blood Pressure Location Lt brachial Position Sitting Pulse 99 Pulse Source Pulse Oximeter Pulse Oximetry (%) 95 Oxygen Delivery Method Room Air Intake Visit Reasons: EP ? ear infection was seen here for it recently Intake Note: Patient here for ear infection which he was put on antibiotics and finished them last week and is still having that left sided ear paain. Patient Tobacco Use Status: Never used Tobacco Allergies No Known Allergies Allergy (Verified 04/09/24 13:15) Do you need a note to return to daycare/school/sports/work: Yes HPI HPI Comments History of Present Illness Details Patient is a 23-year-old male complaining of left-sided ear pain. He tells me on April 09, he was seen at this clinic and diagnosed with an ear infection. He was given Augmentin for 10 days which she just finished taking yesterday, he says his ear felt fine when he was taking the antibiotics but now it hurts again. He also states the antibiotics gave him terrible diarrhea. He denies any change in his hearing but did say he felt feverish overnight last night but did not get up to check his temperature. [facility] Medical History Finger abrasion Knee pain, right Annual physical exam Right shoulder pain Surgical History H/O wisdom tooth extraction Family History Father No problems noted. Mother No problems noted. Social History Household Members Other:: in , family in [place], Housing: Condominium Alcohol intake: current Alcohol intake frequency: a few times a month Patient Tobacco Use Status: Never used Tobacco e-Cigarette/Vaping Use: Never Used service: Yes Current occupational status: employed Current occupation: active /rt hand Cognitive needs: No Hearing needs: No Vision needs: Yes Review of Systems Const All systems reviewed & are unremarkable except as noted in HPI and below Physical Exam Vital Signs: Last Vital Signs Pulse 99 04/20/24 09:47 BP 130/88 04/20/24 09:47 Pulse Ox 95 04/20/24 09:47 Oxygen Delivery Method Room Air 04/20/24 09:47 Const General: cooperative, healthy appearing, comfortable and no acute distress Orientation/consciousness: patient oriented x3 HEENT Head: Yes normal to inspection, Yes No palpable skull fracture present and Yes normocephalic Ears: hearing grossly normal bilaterally, external ears normal, EAC's normal, mastoids normal (no TTP) bilaterally and TM abnormal (Left) dull, wth effusion (Left) purulent, erythematous, with fluid behind the TM (Purulent effusion) and with loss of landmarks General nose exam: Normal external nose present Face and sinus: Yes normal facial exam Mouth: Normal oral and palatal mucosa present Teeth and gingiva: dentition normal Throat: Yes posterior oropharynx normal Eyes General: appearance normal, both eyes and all related structures Neck Neck: Yes normal visual inspection, Yes full ROM, Yes no lymphadenopathy, Yes no meningeal signs, Yes trachea midline and Yes supple Resp Effort & Inspection: normal respiratory effort and able to speak in complete sentences Skin General skin exam: no rashes or lesions noted Neuro General: patient oriented x3 and no meningeal signs Assessment & Plan Assessment & Plan (1) Otitis media of left ear: Code(s): H66.92 - Otitis media, unspecified, left ear Qualifiers: Otitis media type: suppurative Chronicity: acute Recurrence: non-recurrent Spontaneous tympanic membrane rupture: without spontaneous rupture Qualified Code(s): H66.002 - Acute suppurative otitis media without spontaneous rupture of ear drum, left ear Plan: Patient just completed Augmentin, I will start him on cefdinir and gave him an ENT doctor's name to follow up with if no improvement in his symptoms or his symptoms worsen. Plan See above Medications: New cefdinir 300 mg PO Q12H 14 caps 0RF Coding Level of Care Code Est Pt Level 3 (78846) Diagnoses Non-recurrent acute suppurative otitis media of left ear without spontaneous rupture of tympanic membrane H66.002 Otitis media type: suppurative Chronicity: acute Recurrence: non-recurrent Spontaneous tympanic membrane rupture: without spontaneous rupture
[2024-04-20 09:47] VITALS: BP 130/88; PULSE 99; O2SAT 95
== END 2024-04-20 10:08 | disposition home or self-care (01) ==
PROVIDERS: PCP Internal Medicine; Visit Provider Physician Assistant
DX: H66.002 Acute suppurative otitis media without spontaneous rupture of ear drum, left ear (principal)

== ENCOUNTER → 2024-04-20 09:25 | Outpatient (BNVA) | payer OTHER, SELFPAY | PROVIDERS: PCP Internal Medicine; Visit Provider Physician Assistant | DX: H66.002 Acute suppurative otitis media without spontaneous rupture of ear drum, left ear (principal) | CPT/HCPCS: 99212 ==

== ENCOUNTER 2024-06-05 12:25 | Outpatient (AMB) | payer OTHER, SELFPAY ==
[2024-06-05 12:26] VITALS: BP 110/70; PULSE 78; O2SAT 98; BMI 32.9
--- NOTE | 2024-06-05 12:26 | MHC.PC.OV ---
Vital Signs 06/05/24 12:26 Height 6 ft 3 in Weight 263 lb BMI 32.9 BP 110/70 Blood Pressure Location Lt brachial Position Sitting Pulse 78 Pulse Source Pulse Oximeter Pulse Oximetry (%) 98 Oxygen Delivery Method Room Air Intake Visit Reasons: F/u Ear pain Intake Note: Pt is here today for after being seen in a walk in for ear pain. Allergies No Known Allergies Allergy (Verified 06/05/24 12:26) Medication List - Last Reconciled 06/05/24 by Angy Rock MD COVID-19 antigen test As directed for COVID symptoms Wegovy (semaglutide (weight loss)) 0.25 mg (0.5 mL) subcut QWEEK NS Tobacco use date assessed: 06/05/24 Dental Screening Dental Screen Date: 06/05/24 Did you have a dental visit in the last 12 months?: Yes Did you have a dental problem in the last 6 months where you did not have access to dental care?: No Was dental information given to patient?: Patient has dentist HPI F/u Ear pain HPI Details Patient presents for the follow-up of left ear otitis media. He was prescribed 2 courses of antibiotics in April and has an appointment scheduled with ENT in July. Patient reports occasionally crackling sound in the left ear otherwise no pain, ear discharge, change in the hearing, fever chills nasal congestion. Patient has been decreasing caloric intake and increasing physical activity for the over 6 months trying to lose weight unsuccessfully. He is interested in trying GLP 1 agonist to facilitate weight loss [facility] Medical History Finger abrasion Knee pain, right Annual physical exam Right shoulder pain Surgical History H/O wisdom tooth extraction Family History Father No problems noted. Mother No problems noted. 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 1. Little interest or pleasure in doing things: not at all 2. Feeling down, depressed, or hopeless: not at all 3. Trouble falling or staying asleep, or sleeping too much: several days 4. Feeling tired or having little energy: more than half the days 5. Poor appetite or overeating: not at all 6. Feeling bad about yourself - or that you are a failure or have let yourself or your family down: not at all 7. Trouble concentrating on things, such as reading the newspaper or watching television: not at all 8. Moving or speaking so slowly that other people could have noticed. Or the opposite - being so fidgety or restless that you have been moving around a lot more than usual: not at all 9. Thoughts that you would be better off or of hurting yourself in some way: not at all Total score: 3 Depression Screening Interpretation: Negative Depression Screening Done: Yes 23008 - PHQ-9 Billing: Yes Source: Developed by Drs. Rigoberto Michel, Ml Avina, Reece Sierra and colleagues, with an educational cristo from [employer]. Thrive Questionnaire Date Thrive assessed: 06/05/24 I am a: Patient What is your living situation today?: I have a steady place to live Within the past 12 months, did the food you bought not last and you didn't have the money to get more?: Never true Within the past 12 months, did you worry whether your food would run out before you got money to buy more?: Never true Do you have trouble paying for medicines?: No Do you have trouble getting transportation to medical appointments?: No Do you have trouble paying your heating and electricity bill?: No Do you have trouble taking care of your child, family member or friend?: No Do you have trouble with day-to-day activities such as bathing, preparing meals, shopping, managing finances, etc.?: No Are you currently unemployed and looking for a job?: No Are you interested in more education?: No Please select the resources that you would like help with: None Currently or been in a relationship where the following occur: No concerns reported THRIVE Score: 0 AUDIT C Alcohol Use Questionnaire (AUDIT-C) 1. How often do you have a drink containing alcohol?: Monthly or less 2. How many drinks containing alcohol do you have on a typical day when you are drinking?: 1 or 2 3. How often do you have six or more drinks on one occasion?: Never Total Score: 1 LIDIA-7 AMB Questionnaire LIDIA-7 Date LIDIA - 7 assessed: 06/05/24 Feeling nervous, anxious, or on edge: 0 = Not at all Not being able to stop or control worryin = Not at all Worrying too much about different things: 0 = Not at all Trouble relaxin = Not at all Being so restless that it is hard to sit still: 0 = Not at all Becoming easily annoyed or irritable: 0 = Not at all Feeling afraid as if something awful might happen: 0 = Not at all Total LIDIA-7 score (0-4 normal; 5-9 mild; 10-14 moderate; 15-21 severe): 0 Source: Developed by Drs. Rigoberto Michel, Ml Avina, Reece Sierra and colleagues, with an educational cristo from [employer]. LIDIA-7 Assessment Billing LIDIA-7 Assessment Tool: LIDIA-7 Assessment 27044 Review of Systems Const All systems reviewed & are unremarkable except as noted in HPI and below Eyes Reports no additional complaints ENT Reports no additional complaints Card Reports no additional complaints Resp Reports no additional complaints GI Reports no additional complaints Reports no additional complaints Physical exam (Primary Care) Vital Signs: Last Vital Signs Pulse 78 06/05/24 12:26 BP 110/70 06/05/24 12:26 Pulse Ox 98 06/05/24 12:26 Oxygen Delivery Method Room Air 06/05/24 12:26 BMI result Body Mass Index 32.9 Tobacco/Smoking Status: Tobacco use Status Tobacco use date assessed 06/05/24 06/05/24 12:28 Patient Tobacco Use Status Never used Tobacco 06/05/24 12:26 e-Cigarette/Vaping Use Never Used 06/05/24 12:26 PHQ-9: PHQ-9 Score PHQ-9: Total score 3 06/05/24 12:35 Depression Screening Interpretation: Negative Thrive Assessment: Date of Thrive Assessment Date Thrive assessed 06/05/24 06/05/24 12:35 Currently or been in a relationship where the following occur: No concerns reported Const General: no acute distress HENMT Head: Yes normal to inspection Ears: hearing grossly normal bilaterally and TM's normal bilaterally General nose exam: Normal external nose present Mouth: Normal oral and palatal mucosa present Throat: Yes posterior oropharynx normal Eyes General: appearance normal, both eyes and all related structures Resp Effort & Inspection: normal respiratory effort Auscultation: clear to auscultation bilaterally Cardio Rhythm: regular rhythm Heart sounds: S1 normal heart sound present and S2 normal heart sound present Coding Level of Care Code Est Pt Level 3 (35573) Diagnoses Annual physical exam Z00. Non-recurrent acute suppurative otitis media of left ear without spontaneous rupture of tympanic membrane H66.002 Otitis media type: suppurative Chronicity: acute Recurrence: non-recurrent Spontaneous tympanic membrane rupture: without spontaneous rupture Overweight E66.3 Additional Codes LIDIA-7 Assessment Billing - LIDIA-7 Assessment Tool: LIDIA-7 Assessment 21373 ([id number]) PHQ-9 - 85439 - PHQ-9 Billing: Yes ([id number]) Assessment & Plan Assessment & Plan (1) Annual physical exam: Code(s): Z00.00 - Encounter for general adult medical examination without abnormal findings Category: Medical Plan: Patient will return for fasting blood work (2) Otitis media of left ear: Code(s): H66.92 - Otitis media, unspecified, left ear Category: Medical Qualifiers: Otitis media type: suppurative Chronicity: acute Recurrence: non-recurrent Spontaneous tympanic membrane rupture: without spontaneous rupture Qualified Code(s): H66.002 - Acute suppurative otitis media without spontaneous rupture of ear drum, left ear Plan: Resolved (3) Overweight: Comment: BMI 31.1 06/2024 Code(s): E66.3 - Overweight Category: Medical Plan: Patient will try Wegovy 0.25 mg weekly continue decreasing caloric intake increasing physical activity Orders: Orders TSH reflex Free T4 Today Z00.00 - Encounter for general adult medical examination without abnormal findings UA w Microscopic Today Z00.00 - Encounter for general adult medical examination without abnormal findings Syphilis Screen Today Z00.00 - Encounter for general adult medical examination without abnormal findings CT NG by PCR Today Z00.00 - Encounter for general adult medical examination without abnormal findings Comprehensive [place]. Panel Fast Today Z00.00 - Encounter for general adult medical examination without abnormal findings Complete Blood Count Auto Diff Today Z00.00 - Encounter for general adult medical examination without abnormal findings Lipid Panel Today Z00.00 - Encounter for general adult medical examination without abnormal findings HIV Ab/Ag Today Z00.00 - Encounter for general adult medical examination without abnormal findings Medications: New Wegovy (semaglutide (weight loss)) 0.25 mg (0.5 mL) subcut QWEEK 2 mL 1RF NS
--- OUTSIDE RECORDS SUMMARY | 2024-06-05 13:55 | XMS_ITS | Continuity of Care Document ---
Author Name [facility] Organization [facility] Care Team Providers Care Flight Mechanic Name Role Phone [facility] Unavailable Unavailable Problems Combined list of problems from Department of Defense and Veterans Affairs facilities. It does not include entries that were removed or entered in error. Problem Status Onset Date Problem Type Date of Resolution Comments Source Encounter for issue of other medical certificate Active 11/29/[address] [place] [address] Personal history of deployment Inactive 08/22/2022 Condition DoD Pain in right knee Inactive 07/17/2022 Condition [facility] ASSESSMENT, POST-DEPLOYMENT, DOCUMENTED ON [id number] Inactive 03/06/2020 Condition DoD History of deployment Active Condition Ambulatory Pharmacy Overweight Active Condition Ambulatory Pharmacy Obesity, unspecified Active Condition DoD Allergies, Adverse Reactions, Alerts Combined list of allergies from Department of Defense and Veterans Affairs facilities. It does not include entries that were removed or entered in error. Substance Category Reaction Severity Reaction type Status Date Reported Comments Source No Known Allergies Drug allergy (disorder) active 10/10/2017 [place] [address] Immunizations Combined list of available immunizations from the Department of Defense and Veterans Affairs facilities. Immunization Series Date Given Administered By Site Reaction Lot Number CVX Code Drug Sales Office Administrator Status Comments Source influenza, injectable, quadrivalent- pf 2021 150 GlaxoSmithKli ne complet ed influenza , injectabl e, quadrival ent-pf 03/06/22 Given Ambulat ory Pharmac y influenza, seasonal, injectable 2021 [id number] Unknown complet ed influenza , seasonal, injectabl e 03/06/22 Given Ambulat ory Pharmac y anthrax vaccine 2021 [id number] Emergent Biosolutions complet ed anthrax vaccine 03/01/22 Given Ambulat ory Pharmac y typhoid Vi capsular polysaccharid e vac 2021 [id number] sanofi pasteur complet ed typhoid Vi capsular polysacch aride vac 03/01/22 Given Ambulat ory Pharmac y anthrax vaccine 4 2021 [id number] 24 Emergent Bio[employer] Haugen (MIP) complet ed anthrax vaccine DoD typhoid Vi capsular polysaccharid e vaccine 2 2021 [id number] Sanofi Pasteur (PMC) complet ed typhoid Vi capsular polysacch aride vaccine DoD influenza, seasonal, injectable 2020 [id number] 141 GlaxoSmithKli ne complet ed influenza , seasonal, injectabl e 04/03/21 Given Ambulat ory Pharmac y Influenza, seasonal, injectable 1 2020 [id number] 141 [facility] (SKB) complet ed Influenza , seasonal, injectabl e DoD COVID Vaccine Moderna 2020 [id number] complet ed COVID Vaccine Moderna 11/11/20 Given Ambulat ory Pharmac y SARS-COV-2 (COVID-19) vaccine, mRNA, spike protein, LNP, preservative free, 100 mcg or 50 mcg dose 2 2020 [id number] 207 Moderna US, Inc. (MOD) complet ed SARS-COV- 2 (COVID-19 ) vaccine, mRNA, spike protein, LNP, preservat akiko free, 100 mcg or 50 mcg dose DoD COVID Vaccine Moderna 2020 [id number] complet ed COVID Vaccine Moderna 10/07/20 Given Ambulat ory Pharmac y SARS-COV-2 (COVID-19) vaccine, mRNA, spike protein, LNP, preservative free, 100 mcg or 50 mcg dose 1 2020 [id number] 207 Moderna MasterImage 3D, Inc. (MOD) complet ed SARS-COV- 2 (COVID-19 ) vaccine, mRNA, spike protein, LNP, preservat akiko free, 100 mcg or 50 mcg dose DoD influenza, injectable, quadrivalent- pf 2020 [id number] 150 Seqirus complet ed influenza , injectabl e, quadrival ent-pf 09/05/20 Given Ambulat ory Pharmac y Influenza, injectable, quadrivalent, preservative free 1 2020 [id number] 150 Seqirus (SEQ) complet ed Influenza , injectabl e, quadrival ent, preservat akiko free DoD anthrax vaccine 2019 [id number] 24 Emergent Biosolutions complet ed anthrax vaccine 01/10/20 Given Ambulat ory Pharmac y anthrax vaccine 3 2019 [id number] 24 Emergent Bio[employer] Prabhjot ([facility]) complet ed anthrax vaccine DoD anthrax vaccine 2019 [id number] 24 Emergent Biosolutions complet ed anthrax vaccine 07/30/19 Given Ambulat ory Pharmac y anthrax vaccine 2 2019 [id number] 24 Emergent [employer] Prabhjot ([facility]) complet ed anthrax vaccine DoD Human Papillomaviru s 9-valent vaccine 2019 [id number] 165 Merck & Company Inc complet ed Human Papilloma virus 9-valent vaccine 06/23/19 Given Ambulat ory Pharmac y anthrax vaccine 2019 [id number] 24 Emergent Biosolutions complet ed anthrax vaccine 06/23/19 Given Ambulat ory Pharmac y typhoid Vi capsular polysaccharid e vac 2019 [id number] 101 sanofi pasteur complet ed typhoid Vi capsular polysacch aride vac 06/23/19 Given Ambulat ory Pharmac y anthrax vaccine 1 2019 [id number] 24 Emergent [employer] Haugen ([facility]) complet ed anthrax vaccine DoD typhoid Vi capsular polysaccharid e vaccine 1 2019 [id number] 101 Sanofi Pasteur ([facility]) complet ed typhoid Vi capsular polysacch aride vaccine DoD Human Papillomaviru s 9-valent vaccine 2 2019 [id number] 165 Merck (MSD) complet ed Human Papilloma virus 9-valent vaccine DoD influenza, injectable, quadrivalent- pf 2018 [id number] 150 Seqirus complet ed influenza , injectabl e, quadrival ent-pf 03/13/19 Given Ambulat ory Pharmac y Influenza, injectable, quadrivalent, preservative free 1 2018 [id number] 150 Seqirus (SEQ) complet ed Influenza , injectabl e, quadrival ent, preservat akiko free DoD Human Papillomaviru s 9-valent vaccine 2018 [id number] 165 Merck & Company Inc complet ed Human Papilloma virus 9-valent vaccine 07/28/18 Given Ambulat ory Pharmac y Human Papillomaviru s 9-valent vaccine 1 2018 [id number] 165 Merck (MSD) complet ed Human Papilloma virus 9-valent vaccine DoD influenza, injectable, quadrivalent- pf 2017 [id number] 150 GlaxoSmithKli ne complet ed influenza , injectabl e, quadrival ent-pf 05/20/18 Given Ambulat ory Pharmac y hepatitis A-hepatitis B vaccine 2017 [id number] 104 GlaxoSmithKli ne complet ed hepatitis A-hepatit is B vaccine 05/20/18 Given Ambulat ory Pharmac y hepatitis A and hepatitis B vaccine 3 2017 [id number] 104 SmithKline ([facility]) complet ed hepatitis A and hepatitis B vaccine DoD Influenza, injectable, quadrivalent, preservative free 2 2017 [id number] 150 SmithKline ([facility]) complet ed Influenza , injectabl e, quadrival ent, preservat akiko free DoD hepatitis A-hepatitis B vaccine 2017 [id number] 104 GlaxoSmithKli ne complet ed hepatitis A-hepatit is B vaccine 11/18/17 Given Ambulat ory Pharmac y hepatitis A and hepatitis B vaccine 2 2017 [id number] 104 SmithKline ([facility]) complet ed hepatitis A and hepatitis B vaccine DoD hepatitis A-hepatitis B vaccine 2017 [id number] 104 GlaxoSmithKli ne complet ed hepatitis A-hepatit is B vaccine 10/09/17 Given Ambulat ory Pharmac y hepatitis A and hepatitis B vaccine 1 2017 [id number] 104 SmithKline (SK) complet ed hepatitis A and hepatitis B vaccine DoD influenza, injectable, quadrivalent- pf 2017 [id number] 150 GlaxoSmithKli ne complet ed influenza , injectabl e, quadrival ent-pf 10/04/17 Given Ambulat ory Pharmac y meningococcal A,C,Y,W-135 (MCV4P) 2017 [id number] 114 sanofi pasteur complet ed meningoco ccal A,C,Y,W-1 35 (MCV4P) 10/04/17 Given Ambulat ory Pharmac y tetanus, diphtheria, acellular pertu is 2017 [id number] 115 GlaxoSmithKli ne complet ed tetanus, diphtheri a, acellular pertussis 10/04/17 Given Ambulat ory Pharmac y poliovirus vaccine, inactivated 2017 [id number] 10 sanofi pasteur complet ed polioviru s vaccine, inactivat ed 10/04/17 Given Ambulat ory Pharmac y adenovirus vaccine, live 2017 [id number] 143 Teva Pharmaceutica complet ed adenoviru s vaccine, live 10/04/17 Given Ambulat ory Pharmac y poliovirus vaccine, inactivated 1 2017 [id number] 10 Sanofi Pasteur ([facility]) complet ed polioviru s vaccine, inactivat ed DoD meningococcal polysaccharid e (groups A, C, Y and W-135) diphtheria toxoid conjugate vaccine (MCV4P) 1 2017 [id number] 114 Sanofi Pasteur (PMC) complet ed meningoco ccal polysacch aride (groups A, C, Y and W-135) diphtheri a toxoid conjugate vaccine (MCV4P) DoD tetanus toxoid, reduced diphtheria toxoid, and acellular pertu is vaccine, adsorbed 1 2017 [id number] 115 Streyner (SKB) complet ed tetanus toxoid, reduced diphtheri a toxoid, and acellular pertussis vaccine, adsorbed DoD Adenovirus, type 4 and type 7, live, oral 1 2017 [id number] 143 Miller [facility] (BRR) complet ed Adenoviru s, type 4 and type 7, live, oral DoD Influenza, injectable, quadrivalent, preservative free 1 2017 [id number] 150 Symptom.[place] (SKB) complet ed Influenza , injectabl e, quadrival ent, preservat akiko free DoD measles virus vaccine 0 2017 05 () Not Given measles virus vaccine DoD rubella virus vaccine 0 2017 06 () Not Given rubella virus vaccine DoD mumps virus vaccine 0 2017 07 () Not Given mumps virus vaccine DoD varicella virus vaccine 0 2017 21 () Not Given varicella virus vaccine DoD Results Combined list of recent chemistry, hematology and other laboratory results from Department of Defense and Veterans Affairs, ranging from 15 months to all on record, depending upon the facility. Order Name Results Value Reference Range Date Interpretation Specimen Comments Source Infectio us Disease HIV-1/O/2 Non-Reac tive 2 (01/13/24 2:20 PM) 01/12 N Interpretiv e Data: INTERPRETAT ION: This method is a screening procedure for the detection of HIV p24 Antigen and Antibodies to HIV-1, including Group O, and/or HIV-2. NON-REACTIV E: HIV-1 antigen and HIV-1 / HIV-2 antibodies were not detected. No laboratory evidence of HIV infection. A negative test result does not exclude the possibility of exposure to or infection with HIV. HIV antibodies and/or p24 antigen may be undetectabl e in some stages of the infection and in some clinical conditions. If acute HIV infection is suspected, consider submitting another specimen to a reference laboratory for HIV-1 RNA. SCREEN REACTIVE - CONFIRMATIO N TO FOLLOW: Possible presence of HIV-1antibo dies, HIV-2 antibodies and/or HIV-1 p24 antigen. Specimen will reflex to the confirmatio n testing that fulfills the Center for Disease Control and Prevention' s HIV diagnostic algorithm. Refer to [facility] Lab Guide for additional information : [email or web address] x Testing performed by Hector lamb. Ambulator y Pharmacy Miscella neous Sendouts Repository Sample Received (01/13/24 2:20 PM) 01/12 N Ambulator y Pharmacy Miscella neous Sendouts Repository Sample.EPI RECEIVED 10/11 Result Comment: INTERPRETAT ION(S): Performed by: Epidemiolog y Laboratory Service [facility] Bldg [address] [place] [id number] Ambulator y Pharmacy Vital Signs Combined list of inpatient and outpatient Vital Signs from Department of Defense and Veterans Affairs, ranging from 12 months to all on record, depending upon the facility. Vital Sign Value Date Comments Source Systolic Blood Pressure 125mm[Hg] 10/19/2022 17:06:00 Ambulatory Pharmacy Diastolic Blood Pressure 78mm[Hg] 10/19/2022 17:06:00 Ambulatory Pharmacy Mean Arterial Pressure, Calc 94mm[Hg] 10/19/2022 17:06:00 Ambulatory P harmacy Peripheral Pulse Rate 69bpm 10/19/2022 17:06:00 Ambulatory Pharmacy Respiratory Rate 16br/min 10/19/2022 17:06:00 Ambulatory Pharmacy Temperature Oral 36.8Cel 10/19/2022 17:06:00 Ambulatory Pharmacy BP Site 10/19/2022 17:06:00 Ambul atory Pharmacy Blood Pressure Manual 10/19/2022 17:06:00 Ambulatory Pharmacy Encounters Combined list of: 1) Encounters from Department of Veterans Affairs facilities going back up to thelast 18 months. 2) Encounters from the Department of Defense facilities going back up to 280 months. Location Location Details Encounter Type Encounter Number Reason For Visit Attending Provider ADM Date DC Date Status Disposition [place] [address](Hea ring Conservat ion, BMT) OUTPATIENT [id number] KD TERESA 10/08 Released w/o Limitations [facility] [place] [address](H earing Conserv ation, BMT) [place] [address](Opt ometry Clinic BMT [facility]) OUTPATIENT [id number] Notes Entered by: NEIL LANGLEY 08 Oct 2017 0907 ------- ------- ------- ------- -- MR FERNANDO GAMAL STACY 10/08 Released w/o Limitations [facility] [place] [address](O ptometr y Clinic BMT [facility]) [place] [address]([facility] Naseem Bhatti) OUTPATIENT [id number] Notes Entered by: EDD THOMAS 10 Oct 2017 0900 ------- ------- ------- ------- -- Strep Prophyl axis ARYAN THOMAS 10/10 Released w/o Limitations [facility] [place] [address]([facility] [place]([facility] Occupatio nal Health) OUTPATIENT [id number] [facility] MEGHA SCALES 12/24 Released w/o Limitations [place]([facility] Occupat ional Health) [place]NA[facility] Hearing Conserv[place] ion) OUTPATIENT [id number] EDUCATI ON & TRAINJOSE JASMINE 01/15 Released w/o Limitations [place] Hearing Conserv [place]ion[place]) OUTPATIENT [id number] oss/damaris moody /MEGHA Winn 02/25 Released w/o Limitations [place]) [employer]([facility]) OUTPATIENT [id number] Notes Entered by: SA JERE PRUETT 04 Jul 2018 1241 ------- ------- ------- ------- -- Annual Audiogr am ASHLYN PRUETT 07/04 Released w/o Limitations [employer](H earing Conserv ation Clinic) [employer]([facility] Ops Medicine_ Clinic) OUTPATIENT [id number] 7 [facility]-479 [id number] CUAUHTEMOC RICHARDS 07/04 Released w/o Limitations [employer]([facility] Ops Medicin e_Clini c) [employer]([facility]) OUTPATIENT [id number] Notes Entered by: HANNY MEDEIROS 08 Jul 2018 0826 ------- ------- ------- ------- -- OBDULIO CORTES 07/08 Released w/o Limitations [employer]([facility] Red) [employer]([facility] Flight Medicine) OUTPATIENT [id number] OHE/[facility] J[facility]NNY Garcia 07/22 Released w/o Limitations [employer]([facility] Flight Medicin e) [employer]([facility]) OUTPATIENT [id number] toenail infecti on. NAL-NR KARISSA VASQUEZ V 07/29 Released w/o Limitations [employer]([facility] Red) [employer]([facility] Utilizati on Managemen t) TELE CONSULT [id number] Notes Entered by: CARMELITA BALLESTEROS 30 Jul 2018 1453 ------- ------- ------- ------- -- NAL Call CASSANDAR WREN John Paul 07/30 [employer]( babak Utilricardoa tion Manage ent) [employer]([facility] [place] Red) OUTPATIENT [id number] f/u ingrown toenail KARISSA VASQUEZ V 07/30 Released w/o Limitations [employer]([facility] Red) [employer]([facility] [place] Red) OUTPATIENT [id number] ongoing ingrown toe nail GLEW, KARISSA V 08/08 Released w/o Limitations [employer]([facility] Red) [employer]([facility] [place] Red) OUTPATIENT [id number] toenail removal LIZY KIARA W 08/08 Released w/o Limitations [employer]([facility] Red) [employer]([facility] Optometry Clinic) OUTPATIENT [id number] MAX URRUTIA 09/10 Released w/o Limitations [employer]([facility] Optomet ry Clinic) [employer]([facility] [place] Red) OUTPATIENT [id number] compre ssion in lower back GLEStephania, KARISSA V 12/08 Released w/o Limitations [employer]([facility] Red) [employer]([facility] Ops Medicine_ Clinic) OUTPATIENT [id number] Notes Entered by: DARLINE SILVEIRA 08 Jul 2019 0940 ------- ------- ------- ------- -- MAIKOL DE LA TORRE 07/08 Released w/o Limitations [employer]([facility] Base Ops Medicin e_Clini c) [employer]([facility] Conserv[facility] ion Clinic) OUTPATIENT [id number] Notes Entered by: Nehemiah MCGARRY 08 Jul 2019 1054 ------- ------- ------- ------- -- Angela Jacksongr MADONNA Hinton 07/08 Released w/o Limitations [employer](H earing Conserv ation Clinic) [employer]([facility] [place] Red) OUTPATIENT [id number] Notes Entered by: CARRINGTON HERRERA 09 Jul 2019 1452 ------- ------- ------- ------- -- Deploye r CLAYTON MELLISARALPHLETITIA R 07/09 Released w/o Limitations [employer]([facility] Red) [employer]([facility] Flight Medicine) OUTPATIENT [id number] OHE 051A/St ructrupert PACKER TRACEY M 07/16 Released w/o Limitations [employer]([facility] Flight Medicin e) Theater Facility OUTPATIENT [id number] Theater Provider 03/06 Released w/o Limitations Theater Facilit y [employer]([facility] [place] Red) OUTPATIENT [id number] Toe nail possibl e ingrown . [facility] MELLISARALPHLETITIA R 05/31 Released w/o Limitations [employer]([facility] Red) [employer]([facility] [place] Red) OUTPATIENT [id number] !(1015) F/u Toenail , possibl e removal KIARA MEDEL W 06/06 Released w/o Limitations [employer]([facility] Red) [employer](Bas e Ops Med Clinic) OUTPATIENT [id number] 3 FANNY QUINONES 08/17 Released w/o Limitations [employer](B ase Ops Med Clinic) [facility](Fli ght Med Gutierrez) TELE CONSULT [id number] Notes Entered by: NAMRATA QUINONES 20 Feb 2021 1427 ------- ------- ------- ------- -- Civilia n notes in [facility] FANNY QUINONES 02/20 [employer](F light Med [facility]ierrez) [facility] Group(Fli ght Med [facility]ierrez) TELE CONSULT [id number] Notes Entered by: CAITY CASEY 13 Jun 2021 1120 ------- ------- ------- ------- -- Con Leave Request EARL NINA 06/13 Other Not Elsewhere Classified [employer](F light Med [facility]) [facility](Bas e Ops Med Clinic) OUTPATIENT [id number] [facility] # VIOLET PATTONTTE 09/28 Released w/o Limitations [facility](B ase Ops Med Clinic) [facility](Bas e Ops Med Clinic) OUTPATIENT [id number] DRHA1-r kainhedu led LAURIE PATTON 02/28 Released w/o Limitations [employer](B ase Ops Med Clinic) Theater Facility OUTPATIENT [id number] Theater Provider 07/17 Released w/o Limitations Theater [facility] Theater Facility OUTPATIENT [id number] Theater Provider 07/18 Released w/o Limitations Theater Facilit [facility] Theater Facility OUTPATIENT [id number] Theater Provider 08/22 Released w/o Limitations Theater Facilit y 0A-AF- C- [employer] [employer] Between Visit [id number] 10/30 Discharge Disposition: Home or Self Care 0A-A F-C- h [employer] 7379C-Yolanda [facility] Outpatient [id number] Encount er for issue of other medical certifi leighton RODRIGUEZ 11/28 Discharge Disposition: Home or Self Care 7379C-L [facility] 8344R-439 AMDS Outpatient [id number] PEPPER [place] 01/12 Discharge Disposition: Home or Self Care 8344R-4 39 AMDS 8344R-439 [facility] Outpatient [id number] PEPPER PADMINI 02/03 Discharge Disposition: Home or Self Care 8344R-4 39 AMDS Procedures Combined list of: 1) Procedures from Department of Veterans Affairs facilities going back up to thelast 18 months, not all VA non-surgical procedures are included; 2) All procedures from the Department of Defense facilities. Procedure Procedure Type Code Date Perfomer Comments Sourc e R shoulder labrum sac repair Jun 2021309C-AF- C-66 [employer] WTEx2 2019 0C-AF- C-66 [facility] PURE TONE AUDIOMTRY THRESHOLD COMPUTER DEV AIR PURE TONE AUDIOMTRY THRESHOLD COMPUTER DEV AIR 0208T [facility] Excision of nail and nail matrix, partial or complete, (eg, ingrown or deformed nail) for permanent removal; Excision of nail and nail matrix, partial or complete, (eg, ingrown or deformed nail) for permanent removal; 31094 [facility] Vital signs recorded (includes at minimum: temperature, pulse, respiration, and blood pre ure) Vital signs recorded (includes at minimum: temperature, pulse, respiration, and blood pressure) 2010F [facility] Physical Therapy Service Evaluation Low Complexity Physical Therapy Service Evaluation Low Complexity 58988 2022 Theater Provider [facility] Senait isted Exercises For ROM Assisted Exercises For ROM 42845 2022 Theater Provider [place] Determination Of Refractive State Determination Of Refractive State 06869 2018 MAX MACIAS Spectacles Services Fitting Monofocal Except For Aphakia Spectacles Services Fitting Monofocal Except For Aphakia 00355 2018 MAX MACIAS Ophthalmological New Patient Start Comprehensive Care Ophthalmological New Patient Start Comprehensive Care 89161 2018 MAX MACIAS Part Permanent Excis Nail, Matrix L First Toe Lateral Border Part Permanent Excis Nail, Matrix L First Toe Lateral Border 13775 2018 KIARA MEDEL [facility] Preventive Medicine Administration Of Health Risk Questionnaire Patient-Focused Preventive Medicine Administration Of Health Risk Questionnaire Patient-Focused 83977 2018 OBDULIO PARMAR [facility] Psychometric Emotional / Behavioral A e ment Psychometric Emotional / Behavioral Assessment 83288 2018 CUAUHTEMOC RICHARDS Preventive Medicine Administration Of Health Risk Questionnaire Patient-Focused Preventive Medicine Administration Of Health Risk Questionnaire Patient-Focused 42949 2018 CUAUHTEMOC RICHARDS Internet Med Svc Qual Nonphys Healthcare Prof Up To 7 Days Estab Patient Internet Med Svc Qual Nonphys Healthcare Prof Up To 7 Days Estab Patient 35297 2018 CUAUHTEMOC RICHARDS Threshold Audiogram (Pure Tone) Automated Threshold Audiogram (Pure Tone) Automated 0208T 2018 ASHLYN PRUETT Physician Supervised Group Educational Services Physician Supervised Group Educational Services 37614 2017 JOSE ALCALA Physician Supervised Services Provision Of Educational Supplies Physician Supervised Services Provision Of Educational Supplies 84771 2017 JOSE ALCALA [facility] Physician Supervised Injection Intramuscular Antibiotic Physician Supervised Injection Intramuscular Antibiotic 85115 2017 ARYAN THOMAS Vinay [facility] Screening Test Of Visual Acuity, Quantitative, Bilateral Screening Test Of Visual Acuity, Quantitative, Bilateral 77291 2017 GAMAL FERNANDO [facility] Determination Of Refractive State Determination Of Refractive State 07753 2017 GAMAL FERNANDO Spectacles Services Fitting Monofocal Except For Aphakia Spectacles Services Fitting Monofocal Except For Aphakia 91485 2017 GAMAL FERNANDO Threshold Audiogram (Pure Tone) Threshold Audiogram (Pure Tone) 02252 2017 KD TERESA [facility] Preventive Medicine Administration Of Health Risk Questionnaire Patient-Focused Preventive Medicine Administration Of Health Risk Questionnaire Patient-Focused 93238 LAURIE PATTON [facility] Brief communication technology-based service, e.g. virtual check-in, by a physician or other qualified health care profe kirstie who can report evaluation and management services, provided to an established patient, not originating from a related E/M service provided within the previous 7 days nor leading to an E/M service or procedure within the next 24 hours or soonest available appointment; 5-10 minutes of medical discu ion LAURIE PATTON [facility] Only telephonic assessment; visit lasted 15 minutes. [facility] Psychometric Neuropsych Testing Battery Admin By Computer Psychometric Neuropsych Testing Battery Admin By Computer [id number] ALOK SYLVESTER [facility] Performance Of Mental Status Exam - Cognitive Performance Of Mental Status Exam - Cognitive [id number] ALOK SYLVESTER [facility] Psychiatric Diagnostic Evaluation Review of Records and Reports Psychiatric Diagnostic Evaluation Review of Records and Reports [id number] JOSEE FELDER [facility] Threshold Audiogram (Pure Tone) Automated Threshold Audiogram (Pure Tone) Automated 0208T MADONNA MCGARRY [facility] Vital Signs Recorded Vital Signs Recorded TRACEY PACKER Threshold Audiogram (Pure Tone) Threshold Audiogram (Pure Tone) 08002 TRACEY PACKER DoD Partial Permanent Excision Nail, Matrix Left First Toe Partial Permanent Excision Nail, Matrix Left First Toe [id number] KIARA MEDEL [facility] PHYS/OTH QUALIFIED HEALTH HELPDESK SPECIALIST QUALIFIED,EDUCATION,T RAIN,LICENSURE/REGULA TION (WHEN APPLICABLE) EDUC SER RENDERED TO PATS IN A GRP SETTING (EG,,OBESITY, OR DIABETIC INSTRUCT) 2017 DoD NEUROBEHAV STATUS EXAM (CLIN ASSES THINK,REAS&JUDG,[EG,A CQUIR KNOW,ATTEN,LANG,MEM,P EMMANUEL&PROB SOLV&VIS SPATIAL ABIL]),PHYS/OTH QUAL HCP,BOTH BQIH-SE-FPVP TIME W PT &TIME INTERP TST RES &PREP RPT;1ST HR 2021 DoD ADMINISTRATION OF PATIENT-FOCUSED HEALTH RISK ASSESSMENT INSTRUMENT (EG, HEALTH HAZARD APPRAISAL) WITH SCORING AND DOCUMENTATION, PER STANDARDIZED INSTRUMENT 2021 DoD BRIEF COMM TECH-BASE SERV,E.G. VIRT CHK-IN,BY PHYS/OTH QUAL HCP,RPT E&M SERV,PROV TO EST PT,NOT ORIG FRM REL E/M SERV PROV W/IN PREV 7DAY NOR LEAD TO E/M SRV/PX W/IN NEXT 24HR/SOON HANS; 5-10 MIN DISC 2021 DoD EXCISION OF NAIL AND NAIL MATRIX, PARTIAL OR COMPLETE (EG, INGROWN OR DEFORMED NAIL), FOR PERMANENT REMOVAL 2020 DoD PURE TONE AUDIOMETRY (THRESHOLD); AIR ONLY 2019 DoD ADMINISTRATION OF PATIENT-FOCUSED HEALTH RISK ASSESSMENT INSTRUMENT (EG, HEALTH HAZARD APPRAISAL) WITH SCORING AND DOCUMENTATION, PER STANDARDIZED INSTRUMENT 2019 DoD PURE TONE AUDIOMETRY (THRESHOLD), AUTOMATED; AIR ONLY 2019 DoD ADMINISTRATION OF PATIENT-FOCUSED HEALTH RISK ASSESSMENT INSTRUMENT (EG, HEALTH HAZARD APPRAISAL) WITH SCORING AND DOCUMENTATION, PER STANDARDIZED INSTRUMENT 2019 DoD PSYCHOLOGICAL OR NEUROPSYCHOLOGICAL TEST ADMINISTRATION, WITH SINGLE AUTOMATED, STANDARDIZED INSTRUMENT VIA ELECTRONIC PLATFORM, WITH AUTOMATED RESULT ONLY 2019 DoD PSYCHIATRIC EVALUATION OF HOSPITAL RECORDS, OTHER PSYCHIATRIC REPORTS, PSYCHOMETRIC AND/OR PROJECTIVE TESTS, AND OTHER ACCUMULATED DATA FOR MEDICALDIAGNOSTIC PURPOSES 2019 DoD FITTING OF SPECTACLES, EXCEPT FOR APHAKIA; MONOFOCAL 2018 DoD EXCISION OF NAIL AND NAIL MATRIX, PARTIAL OR COMPLETE (EG, INGROWN OR DEFORMED NAIL), FOR PERMANENT REMOVAL 2018 DoD ADMINISTRATION OF PATIENT-FOCUSED HEALTH RISK ASSESSMENT INSTRUMENT (EG, HEALTH HAZARD APPRAISAL) WITH SCORING AND DOCUMENTATION, PER STANDARDIZED INSTRUMENT 2018 DoD BRIEF EMOTIONAL/BEHAVIORAL ASSESSMENT (EG, DEPRESSION INVENTORY, ATTENTION-DEFICIT/HYP ERACTIVITY DISORDER [ADHD] SCALE), WITH SCORING AND DOCUMENTATION, PER STANDARDIZED INSTRUMENT 2018 DoD PURE TONE AUDIOMETRY (THRESHOLD), AUTOMATED; AIR ONLY 2018 DoD THERAPEUTIC, PROPHYLACTIC, OR DIAGNOSTIC INJECTION (SPECIFY SUBSTANCE OR DRUG); SUBCUTANEOUS OR INTRAMUSCULAR 2017 DoD SCREENING TEST OF VISUAL ACUITY, QUANTITATIVE, BILATERAL 2017 DoD PURE TONE AUDIOMETRY (THRESHOLD); AIR ONLY 2017 DoD Social History Combined list of available smoking, tobacco, and other social history from [facility] of Defense and Veterans Affairs facilities. Social History Type Response Date Comment Olga garza Male 04/20/2022 Ambulatory Pha rmacy Tobacco Never-cigarette user Cigarette use:. Never-other tobacco user (not cigarettes) Other Tobacco use:. Ambulatory Pharmacy Sexual Orientation Ambula tory Pharmacy Gender identity Ambulator y Pharmacy This section is an empty social history section. DoD Assessment and Plan Combined list of future care activities from Department of Defense and Veterans Affairs facilities (e.g., assessment and plan notes, appointments, orders, and referrals). Additional future care activities may be listed in the Plan of Care section. Result Assessment and Plan Date Source Assessment and Plan Extracted from:Title : PHA/MHA Author: FELIPE RAUSCH NP Date: 11/29/23 Encounter for issue of other medical certificate Reviewed and assessed responses to screening tools, and discussed with the patient. ? AUDIT-C=4 PCL-C=0 PHQ-8=0? ? At this time, no tasking or consults needed. Patient aware of services available (911,??One source, [employer], Walk in , Walk in ER, Notify chain of command, etc) and how to contact them if needed. SM denies suicidal and homicidal ideation.? ? Reviewed documentation of height and weight, current medical conditions and deployment related health problems, to include screening for traumatic brain injury exposure, allergies, medications, required immunizations, medical readiness laboratory tests, audiology, and optometry examinations. Completed screenings and provided patient education as appropriate. ? Preventative services reviewed and discussed per age, race, and gender. Reviewed immunization history and assessed immunization status. Reviewed physical activity including aerobic and isometric exercises.??Reviewed risk sexual risk factors and previous STD testing date, including HIV, and assessed as not at significant risk for acquiring STDs including HIV infection. Reviewed readiness labs and examinations needed including recommendation for lipid screening every 5 years beginning at age 35. Compared medications reported by caseworker protective services to active medication list in [facility] and any variances were documented.? ? 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 See PHA document for additional information.? ? 20 minutes of total time spent reviewing records, discussing health concerns including mental health, and preventative health measures with Summer Analyst. ? 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 SM present for virtual encounter. Denies any post deployment medical/MH issues or concerns.? No profiles, no DLCs. IMR Green. ? ? 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 F/U with PCM as needed for any medical issues related to exposure.? Laurie Patton CTR?OCCASIONAL CAREGIVER-C [facility] Provider Flight Medicine? [employer] [facility] [place]??[id number] office- [phone] ? 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 SM present for virtual encounter. All age/gender specific CPS IAW USPSTF are up to date. ? IMR-?yellow for dental; SM informed; SM reports scheduled dental appointment for 12 November 2022. Profile- None Active. ? +WWQ pending dental. ? Ordered: Hepatitis C Ab EPI [id number] ? 2.?ASSESSMENT, POST-DEPLOYMENT, DOCUMENTED ON [id number] This encounter contains a review of the SM's chronic and active medical conditions since the date of the last deployment on file. SM present for virtual encounter. ? ? 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 ? SM denies any deployment related medical or MH concerns. SM reports that he was informed with a herber that there was potential radiation in the water and sand; SM was instructed today to submit a copy of herber to [employer]. SM also reports exposure to garbage, loud noises, paint (reports wearing respirator), sand/dust, smoke from burning trash. SM denies any respiratory symptoms, and denies any hearing changes?at this time. ? ? Routine Responses- On DRHA2 form, SM reported being bothered a lot by- Pain in the arms, legs, or joints (knees, hips, etc.),Feeling tired or having low energy,Trouble Sleeping- SM reports that he will be scheduling appointment with PCM soon to address concerns. On DRHA2 form, SM reports being bothered a little by - Back pain,Becoming easily annoyed or irritable,Numbness or tingling in the hands or feet- SM reports that he will be scheduling appointment with PCM soon to address concerns. ? IMR-?yellow for dental; SM informed; SM reports scheduled dental appointment for 12 November 2022. Profile- None Active. ? 3.?Overweight Follow a?healthy diet, regular exercise, and weight/BMI reduction achieving a healthy weight/BMI?(BMI 18.5-25.0); F/U with?PCM/News Producer?as needed. ? 4.?History of deployment Registration at [facility] registry is recommended. Keep enrollment form if registered, and submit to [employer] for record keeping. F/U with PCM as needed for any medical issues related to exposure.? ? Laurie Patton CTR?OCCASIONAL CAREGIVER-C [facility] Provider Flight Medicine? [employer] [place]??[id number] [facility] [phone] ? 06/05/2024 Ambulatory Pharmacy Functional Status Combined list of recent functional and cognitive assessments recorded at [facility] of Defense and Veterans Affairs (VA).VA Functional [place] Measurement (FIM) Scale: 1 = Total Assistance (Subject = 0% +), 2 = Maximal Assistance (Subject = 25% +), 3 = Moderate Assistance (Subject = 50% +), 4 = Minimal Assistance (Subject = 75% +), 5 = Supervision, 6 = Modified [place] (Device), 7 = Complete [place] (Timely, Safely). Assessment Date/Time Source Assessment Type Assessment Skill Assessment Score Assessment Details No data available for this section
== END 2024-06-05 13:10 | disposition home or self-care (01) ==
PROVIDERS: PCP Internal Medicine; Visit Provider Internal Medicine
DX: Z00.00 Encounter for general adult medical examination without abnormal findings (principal); H66.002 Acute suppurative otitis media without spontaneous rupture of ear drum, left ear; E66.3 Overweight

== ENCOUNTER 2024-07-30 11:55 | Outpatient (REF) | payer OTHER, SELFPAY ==
[2024-07-30 13:12] LABS: MANUAL DIFF FLAG NO
[2024-07-30 13:15] LABS: Eosinophils Absolute Auto 0.2 X10*3/uL (0.0-0.4); Eosinophils Percent Auto 3.7 % (0-4); Hematocrit 41.9 % (42.0-52.0); Hemoglobin 14.9 g/dl (14.0-18.0); Imm Gran Abs Auto 0.01 X10*3/uL (0.00-0.03); Imm Gran Pct Auto 0.2 % (0.0-0.4); Lymphocytes Absolute Auto 1.6 X10*3/uL (1.2-4.9); Mean Corpuscular HGB Conc 35.6 g/dl (31.0-36.0); Mean Corpuscular Hemoglobin 30.3 pg (27.0-33.0); Mean Corpuscular Volume 85.2 fL (80.0-98.0); Mean Platelet Volume 11.4 fL (9.4-12.4); Monocytes Absolute Auto 0.2 X10*3/uL (0.1-1.2); Neutrophils Percent Auto 49.1 % (45-73); Platelet Count 204 X10*3/uL (160-400); Red Blood Count 4.92 X10*6/uL (4.60-5.80); Red Cell Distribution Width 12.2 % (11.0-16.0)
[2024-07-30 13:34] LABS: Alanine Aminotransferase 19 U/L (0-40); Albumin Level 4.7 g/dL (3.5-5.0); Alkaline Phosphatase 77 U/L (39-117); Anion Gap 11 (12-20); Aspartate Amino Transferase 23 U/L (5-37); Bilirubin Total 0.7 mg/dL (0.0-1.0); Blood Urea Nitrogen 11 mg/dL (9-16); Calcium 9.5 mg/dL (8.4-10.2); Carbon Dioxide 26 mmol/L (22-29); Chloride 108 mmol/L (96-108); Cholesterol 160 mg/dL (<200); Estimated Glomerular Filt Rate > 60; Glucose Fasting 93 mg/dL (60-99); HDL Cholesterol 40 mg/dL (>40); LDL Cholesterol Calculated 108 mg/dL (<100); Potassium 4.1 mmol/L (3.3-5.1); Sodium 141 mmol/L (135-145); Total Protein 7.5 g/dL (6.5-8.0); Triglycerides 60 mg/dL (<150)
[2024-07-30 13:52] LABS: TSH reflex Free T4 0.41 uIU/mL (0.32-4.0)
[2024-07-31 07:48] LABS: Syphilis Screen Nonreactive (Nonreactive)
[2024-07-31 07:59] LABS: HIV AB/AG Nonreactive (Nonreactive); HIV Num 1 0.06 S/CO (0.00-0.99)
== END 2024-07-30 11:56 | disposition home or self-care (01) ==
LOC: HO.HMGCLDS 11:55
PROVIDERS: PCP Internal Medicine; Visit Provider Internal Medicine
DX: Z00.00 Encounter for general adult medical examination without abnormal findings (principal)
CPT/HCPCS: 36415; 80053; 80061; 84443; 85025; 86780; 87389

== ENCOUNTER 2024-07-31 12:13 | Outpatient (AMB) | payer OTHER, SELFPAY ==
[2024-07-31 12:15] VITALS: BP 120/80; PULSE 90; TEMP 36.9; O2SAT 98; BMI 30.7
--- NOTE | 2024-07-31 12:15 | A.OFFPC_ITS ---
Vital Signs 07/31/24 12:15 Height 6 ft 3 in Weight 246 lb BMI 30.7 BP 120/80 Blood Pressure Location Lt brachial Position Sitting Pulse 90 Pulse Source Pulse Oximeter Temp 98.4 F Temp Source Oral Pulse Oximetry (%) 98 Intake Visit Reasons: Follow up check Up Allergies No Known Allergies Allergy (Verified 07/31/24 12:15) Medication List - Last Reconciled 07/31/24 by Angy Rock MD Wegovy (semaglutide (weight loss)) 0.25 mg (0.5 mL) subcut QWEEK NS Tobacco use date assessed: 07/31/24 Dental Screening Dental Screen Date: 07/31/24 Did you have a dental visit in the last 12 months?: Yes Did you have a dental problem in the last 6 months where you did not have access to dental care?: No Was dental information given to patient?: Patient has dentist HPI Follow up check Up HPI Details Patient presents for the follow-up on weight loss program. He has been taking Wegovy for 2 months and lost 20 lb. Patient denies any side effects has been eating well-balanced diet and exercising regularly. Patient twisted right ankle when walking about a month ago and reports persistent discomfort when trying to walk around. Patient denies ankle swelling [facility] Medical History Finger abrasion Knee pain, right Annual physical exam Right shoulder pain Surgical History H/O wisdom tooth extraction Family History Father No problems noted. Mother No problems noted. 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 Cognitive needs: No Hearing needs: No Vision needs: Yes Questionnaire Thrive Questionnaire Date Thrive assessed: 06/05/24 I am a: Patient What is your living situation today?: I have a steady place to live Within the past 12 months, did the food you bought not last and you didn't have the money to get more?: Never true Within the past 12 months, did you worry whether your food would run out before you got money to buy more?: Never true Do you have trouble paying for medicines?: No Do you have trouble getting transportation to medical appointments?: No Do you have trouble paying your heating and electricity bill?: No Do you have trouble taking care of your child, family member or friend?: No Do you have trouble with day-to-day activities such as bathing, preparing meals, shopping, managing finances, etc.?: No Are you currently unemployed and looking for a job?: No Are you interested in more education?: No Please select the resources that you would like help with: None Currently or been in a relationship where the following occur: No concerns reported THRIVE Score: 0 LIDIA-7 AMB Questionnaire LIDIA-7 Date LIDIA - 7 assessed: 06/05/24 Source: Developed by Drs. Rigoberto Michel, Ml Avina, Reece Sierra and colleagues, with an educational cristo from [employer]. Review of Systems Const All systems reviewed & are unremarkable except as noted in HPI and below Eyes Reports no additional complaints Card Reports no additional complaints Resp Reports no additional complaints GI Reports no additional complaints Reports no additional complaints Physical exam (Primary Care) Vital Signs: Last Vital Signs Temp 98.4 F 07/31/24 12:15 Pulse 90 07/31/24 12:15 BP 120/80 07/31/24 12:15 Pulse Ox 98 07/31/24 12:15 BMI result Body Mass Index 30.7 Tobacco/Smoking Status: Tobacco use Status Tobacco use date assessed 07/31/24 07/31/24 12:17 Patient Tobacco Use Status Never used Tobacco 07/31/24 12:17 e-Cigarette/Vaping Use Never Used 07/31/24 12:17 Thrive Assessment: Date of Thrive Assessment Date Thrive assessed 06/05/24 07/31/24 12:17 Currently or been in a relationship where the following occur: No concerns reported Const General: no acute distress HENMT Face and sinus: Yes normal facial exam Eyes General: appearance normal, both eyes and all related structures Neck Neck: Yes supple Resp Effort & Inspection: normal respiratory effort Auscultation: clear to auscultation bilaterally Cardio Rhythm: regular rhythm Heart sounds: S1 normal heart sound present and S2 normal heart sound present Extrem Other: This is slight decreased range of motion and tenderness in the medial aspect of right ankle no soft tissue swelling erythema or warmth Coding Level of Care Code Est Pt Level 3 (74847) Diagnoses Right ankle injury S99.911A Overweight E66.3 Assessment & Plan Assessment & Plan (1) Right ankle injury: Code(s): S99.911A - Unspecified injury of right ankle, initial encounter Category: Medical Plan: Referred to physical therapy (2) Overweight: Comment: BMI 31.1 06/2024 Code(s): E66.3 - Overweight Category: Medical Plan: Patient lost 20 lb on 0.25 mg of Wegovy will continue the same dose follow-up in 2 months to monitor his weight loss Orders: Orders PT Evaluation and Treatment Today S99.911A - Unspecified injury of right ankle, initial encounter Medications: Refilled Wegovy (semaglutide (weight loss)) 0.25 mg (0.5 mL) subcut QWEEK 6 mL 1RF NS
--- OUTSIDE RECORDS SUMMARY | 2024-07-31 14:28 | XMS_ITS | Continuity of Care Document ---
Author Name [facility] Organization [facility] Care Team Providers Care Filtering Machine Tender Name Role Phone [facility] Unavailable Unavailable Problems Combined list of problems from Department of Defense and Veterans Affairs facilities. It does not include entries that were removed or entered in error. Problem Status Onset Date Problem Type Date of Resolution Comments Source Administrative reason for encounter Active 07/16/2024 Diagnosis 0310C-AF-C- [facility]th [employer] [employer] Personal history of deployment Inactive 08/22/2022 Condition DoD Pain in right knee Inactive 07/17/2022 Condition [facility] ASSESSMENT, POST-DEPLOYMENT, DOCUMENTED ON GR1945 Inactive 03/06/2020 Condition DoD History of deployment Active Condition 0310C-AF-C- [facility]th [employer] [employer] Overweight Active Condition 0310C-AF-C- 66th [employer] Obesity, unspecified Active Condition DoD Medications Combined list of outpatient medications from Department of Defense and Veterans Affairs facilities.Medications provided include 1) outpatient medications from the last 15 months, and 2) patient-reported medications. Medication Details Route Status Patient Instructions Prescription Expires Prescription Number Last Dispense Date Ordering Provider Order Date Order Qty Source No Known Medications No Known Medicati ons complet ed 0310C-A F-C-66t h [facility] MEETiiN Allergies, Adverse Reactions, Alerts Combined list of allergies from Department of Defense and Veterans Affairs facilities. It does not include entries that were removed or entered in error. Substance Category Reaction Severity Reaction type Status Date Reported Comments Source No Known Allergies Drug allergy (disorder) active 10/10/2017 [place] [address] Immunizations Combined list of available immunizations from the Department of Defense and Veterans Affairs facilities. Immunization Series Date Given Administered By Site Reaction Lot Number CVX Code Drug Intake Coordinator Status Comments Source influenza, injectable, quadrivalent- pf 2021 150 GlaxoSmithKli ne complet ed influenza , injectabl e, quadrival ent-pf 03/06/22 Given Ambulat ory Pharmac y influenza, seasonal, injectable 2021 [id number] Unknown complet ed influenza , seasonal, injectabl e 03/06/22 Given Ambulat ory Pharmac y anthrax vaccine 2021 [id number] Emergent Biosolutions complet ed anthrax vaccine 03/01/22 Given Ambulat ory Pharmac y typhoid Vi capsular polysaccharid e vac 2021 [id number] sanofi pasteur complet ed typhoid Vi capsular polysacch aride vac 03/01/22 Given Ambulat ory Pharmac y anthrax vaccine 4 2021 [id number] [facility]gent [facility] ([facility] complet ed anthrax vaccine DoD typhoid Vi capsular polysaccharid e vaccine 2 2021 [id number] 101 Sanofi Pasteur (PMC) complet ed typhoid Vi capsular polysacch aride vaccine DoD influenza, seasonal, injectable 2020 [id number] 141 GlaxoSmWork4Kli oh complet ed influenza , seasonal, injectabl e 04/03/21 Given Ambulat ory Pharmac y Influenza, seasonal, injectable 1 2020 [id number] 141 Muxlim (SKB) complet ed Influenza , seasonal, injectabl e DoD COVID Vaccine Moderna 2020 [id number] complet ed COVID Vaccine Moderna 11/11/20 Given Ambulat ory Pharmac y SARS-COV-2 (COVID-19) vaccine, mRNA, spike protein, LNP, preservative free, 100 mcg or 50 mcg dose 2 2020 [id number] 207 Moderna YapTime, Inc. (MOD) complet ed SARS-COV- 2 (COVID-19 ) vaccine, mRNA, spike protein, LNP, preservat akiko free, 100 mcg or 50 mcg dose DoD COVID Vaccine Moderna 2020 [id number] 207 complet ed COVID Vaccine Moderna 10/07/20 Given Ambulat ory Pharmac y SARS-COV-2 (COVID-19) vaccine, mRNA, spike protein, LNP, preservative free, 100 mcg or 50 mcg dose 1 2020 [id number] 207 Moderna [employer]. (MOD) complet ed SARS-COV- 2 (COVID-19 ) vaccine, mRNA, spike protein, LNP, preservat akiko free, 100 mcg or 50 mcg dose DoD influenza, injectable, quadrivalent- pf 2020 [id number] 150 Seqirus complet ed influenza , injectabl e, quadrival ent-pf 09/05/20 Given Ambulat ory Pharmac y Influenza, injectable, quadrivalent, preservative free 1 2020 [id number] 150 Seqirus (SEQ) complet ed Influenza , injectabl e, quadrival ent, preservat akiko free DoD anthrax vaccine 2019 [id number] 24 Emergent Biosolutions complet ed anthrax vaccine 01/10/20 Given Ambulat ory Pharmac y anthrax vaccine 3 2019 [id number] 24 Emergent BioDefense Operations [place] (MIP) complet ed anthrax vaccine DoD anthrax vaccine 2019 [id number] 24 Emergent Biosolutions complet ed anthrax vaccine 07/30/19 Given Ambulat ory Pharmac y anthrax vaccine 2 2019 [id number] 24 Emergent BioDef[employer] Operations Prabhjot ([facility]) complet ed anthrax vaccine DoD Human Papillomaviru s 9-valent vaccine 2019 [id number] 165 Merck & Company Inc complet ed Human Papilloma virus 9-valent vaccine 06/23/19 Given Ambulat ory Pharmac y anthrax vaccine 2019 [id number] 24 Emergent Biosolutions complet ed anthrax vaccine 06/23/19 Given Ambulat ory Pharmac y typhoid Vi capsular polysaccharid e vac 2019 [id number] 101 sanofi pasteur complet ed typhoid Vi capsular polysacch aride vac 06/23/19 Given Ambulat ory Pharmac y anthrax vaccine 1 2019 [id number] 24 [employer]gent [employer] [place] (MIP) complet ed anthrax vaccine DoD typhoid Vi capsular polysaccharid e vaccine 1 2019 [id number] 101 Sanofi Pasteur (PMC) complet ed typhoid Vi capsular polysacch aride vaccine DoD Human Papillomaviru s 9-valent vaccine 2 2019 [id number] 165 Merck (MSD) complet ed Human Papilloma virus 9-valent vaccine DoD influenza, injectable, quadrivalent- pf 2018 [id number] 150 Seqirus complet ed influenza , injectabl e, quadrival ent-pf 03/13/19 Given Ambulat ory Pharmac y Influenza, injectable, quadrivalent, preservative free 1 2018 [id number] 518 150 Seqirus (SEQ) complet ed Influenza , injectabl e, quadrival ent, preservat akiko free DoD Human Papillomaviru s 9-valent vaccine 2018 [id number] 165 Merck & Company Inc complet ed Human Papilloma virus 9-valent vaccine 07/28/18 Given Ambulat ory Pharmac y Human Papillomaviru s 9-valent vaccine 1 2018 [id number] 165 Merck (MSD) complet ed Human Papilloma [...] B vaccine 3 2017 [id number] 104 SmithKline (SKB) complet ed hepatitis A and hepatitis B vaccine DoD Influenza, injectable, quadrivalent, preservative free 2 2017 [id number] 150 SmithKline (SKB) complet ed Influenza , injectabl e, quadrival ent, preservat akiko free DoD hepatitis A-hepatitis B vaccine 2017 [id number] 104 GlaxoSmithKli ne complet ed hepatitis A-hepatit is B vaccine 11/18/17 Given Ambulat ory Pharmac y hepatitis A and hepatitis B vaccine 2 2017 [id number] 104 SmithKline (SKB) complet ed hepatitis A and hepatitis B vaccine DoD hepatitis A-hepatitis B vaccine 2017 3HG77 104 GlaxoSmithKli ne complet ed hepatitis A-hepatit is B vaccine 10/09/17 Given Ambulat ory Pharmac y hepatitis A and hepatitis B vaccine 1 2017 [id number] 104 SmithKline (SKB) complet ed hepatitis A and hepatitis B vaccine DoD influenza, injectable, quadrivalent- pf 2017 [id number] 150 GlaxoSmithKli ne complet ed influenza , injectabl e, quadrival ent-pf 10/04/17 Given Ambulat ory Pharmac y meningococcal A,C,Y,W-135 (MCV4P) 2017 [id number] 114 sanofi pasteur complet ed meningoco ccal A,C,Y,W-1 35 (MCV4P) 10/04/17 Given Ambulat ory Pharmac y tetanus, diphtheria, acellular pertu is 2017 9PD92 115 [facility] complet ed tetanus, diphtheri a, acellular pertussis 10/04/17 Given Ambulat ory Pharmac y poliovirus vaccine, inactivated 2017 [id number] 10 sanofi pasteur complet ed polioviru s vaccine, inactivat ed 10/04/17 Given Ambulat ory Pharmac y adenovirus vaccine, live 2017 [id number] 143 Teva Pharmaceutica ls complet ed adenoviru s vaccine, live 10/04/17 Given Ambulat ory Pharmac y poliovirus vaccine, inactivated 1 2017 [id number] 10 Sanofi Pasteur ([facility]) complet ed polioviru s vaccine, inactivat ed DoD meningococcal polysaccharid e (groups A, C, Y and W-135) diphtheria toxoid conjugate vaccine (MCV4P) 1 2017 [id number] 114 Sanofi Pasteur ([facility]) complet ed meningoco ccal polysacch aride (groups A, C, Y and W-135) diphtheri a toxoid conjugate vaccine (MCV4P) DoD tetanus toxoid, reduced diphtheria toxoid, and acellular pertu is vaccine, adsorbed 1 2017 9PD92 115 [facility] (SKB) complet ed tetanus toxoid, reduced diphtheri a toxoid, and acellular pertussis vaccine, adsorbed DoD Adenovirus, type 4 and type 7, live, oral 1 2017 [id number] 143 [facility] ([facility]) complet ed Adenoviru s, type 4 and type 7, live, oral DoD Influenza, injectable, quadrivalent, preservative free 1 2017 [id number] 150 Muxlim (SKB) complet ed Influenza , injectabl e, [...] Reference Range Date Interpretation Specimen Comments Source Infectiou s Disease HIV-1/O/2 Non-Reac tive 2 (01/13/24 2:20 [...] Prevention' s HIV diagnostic algorithm. Refer to [employer] [facility] Lab Guide for additional information : [email or web address]://[email or web address] Softwarex. [facility]/ [email or web address]/EPIL ab/Pages/la b_guide.asp x Testing performed by [employer] opal lamb. [employer] EPILAB Miscellan eous Sendouts Repository Sample Received (01/13/24 2:20 PM) 01/12 N 56[employer] EPILAB Miscellan eous Sendouts Repository Sample.EPI RECEIVED 10/11 Result Comment: INTERPRETAT ION(S): Performed by: Epidemiolog y [facility] [facility] [address]ld[address] [place] [id number] 0310A-AF -C-66th [facility] Vital Signs Combined list of inpatient and outpatient Vital Signs from Department of Defense and Veterans Affairs, ranging from 12 months to all on record, depending upon the facility. Vital Sign Value Date Comments Source Respiratory Rate 16 br/min 10/19/2022 17:06:00 2142R-DR-J-66th [employer] [employer] Peripheral Pulse Rate 69 bpm 10/19/2022 17:06:00 2694E-LZ-O-[facility]th [employer] Blood Pressure Manual Automatic 10/19/2022 17:06:00 2975A-HA-K-[facility]th [employer] Mean Arterial Pressure, Calc 94 mm[Hg] 10/19/2022 17:06:00 1313C-MM-B-[facility]th [employer] BP Site Left arm 10/19/2022 17:06:00 3427H-OV-N-[facility]th [employer] Temperature Oral 36.8 Tennille 10/19/2022 17:06:00 9434G-RB-P-[facility]th [employer] Systolic Blood Pressure 125 mm[Hg] 10/20/19 23 17:06:00 5386K-NT-G-[facility]th [employer] [employer] Diastolic Blood Pressure 78 mm[Hg] 023 17:06:00 1207D-LK-V-66th [employer] Encounters Combined list of: 1) Encounters from Department of Veterans Affairs facilities going backup to the last 18 months, not all VA inpatient encounters are included; 2) Encounters from the Department of Defense facilities going backup to 280 months. Location Location Details Encounter Type Encounter Number Reason For Visit Attending Provider ADM Date DC Date Status Disposition [place] [address](Hea ring Conservat ion, BMT) OUTPATIENT [id number] KD TERESA 10/08 Released w/o Limitations [facility] [place] [address](H earing Conserv ation, BMT) [place] [address](Opt ometry Clinic BMT [facility]) OUTPATIENT [id number] Notes Entered by: NEIL LANGLEY 08 Oct 2017 09 ------- ------- ------- ------- -- GAMAL MAGALLANESN 10/08 Released w/o Limitations [facility] [place] [address](O ptometr y Clinic BMT [facility]) [facility] [place] [address]([facility]) OUTPATIENT [id number] Notes Entered by: EDD THOMAS 10 Oct 2017 0900 ------- ------- ------- ------- -- Strep Prophyl axis ARYAN THOMAS 10/10 Released w/o Limitations [facility] [place] [address](T [facility] d) [place]al [facility]) OUTPATIENT [id number] [facility] MEGHA SCALES 12/24 Released w/o Limitations [place] Occupat ional Health) [place] Hearing Conservat ion) OUTPATIENT [id number] EDUCATI ON and JOSE LONG 01/15 Released w/o Limitations [place] Hearing Conserv ation) [place]) OUTPATIENT [id number] oss/lak enheagiulia /af MEGHA MILLS 02/25 Released w/o Limitations [place] [place]) [employer](a ring Conservat ion Clinic) OUTPATIENT [id number] Notes Entered by: SA JERE PRUETT 04 Jul 2018 1241 ------- ------- ------- ------- -- Annual Audiogr am ASHLYN PRUETT 07/04 Released w/o Limitations [employer](H earing Conserv ation Clinic) [employer] Base Ops Medicine_ Clinic) OUTPATIENT [id number] [id number] CUAUHTEMOC RICHARDS 07/04 Released w/o Limitations [employer](L ak Base Ops Medicin e_Clini c) [employer]([facility] Red) OUTPATIENT [id number] Notes Entered by: HANNY MEDEIROS 08 Jul 2018 0826 ------- ------- ------- ------- -- OBDULIO CORTES 07/08 Released w/o Limitations [employer]([facility] Red) [employer]([facility] Flight Medicine) OUTPATIENT [id number] 6 OHE/48 EMS Aircraf t Clotildeu JOHNNY Garcia 07/22 Released w/o Limitations [employer]([facility] Flight Medicin e) [employer]([facility] OUTPATIENT [id number] toenail infecti on. NAL-NR GLEW, KARISSA V 07/29 Released w/o Limitations [employer]([facility] Red) [employer]([facility] Utilizati on Managemen t) TELE CONSULT [id number] Notes Entered by: CARMELITA BALLESTEROS 30 Jul 2018 1453 ------- ------- ------- ------- -- NAL Call CASSANDRA WREN 07/30 [employer]([facility] Utiliza tion Managem ent) [employer]([facility] OUTPATIENT [id number] f/u ingrown toenail GLEW, KARISSA V 07/30 Released w/o Limitations [employer]([facility]) [facility] Medical Group([facility] OUTPATIENT [id number] 2 ongoing ingrown toe nail GLEW, KARISSA V 08/08 Released w/o Limitations [employer]([facility]) [facility] Medical Group([facility] OUTPATIENT [id number] toenail removal KIARA MEDEL W 08/08 Released w/o Limitations [employer]([facility] Red) [facility] Group([facility] Optometry Clinic) OUTPATIENT [id number] MAX URRUTIA 09/10 Released w/o Limitations [employer]([facility] Optomet ry Clinic) [facility] Medical Group([facility] OUTPATIENT [id number] compre ssion in lower back GLEW, KARISSA V 12/08 Released w/o Limitations [employer]([facility] Red) [employer]([facility] Medicine_ Clinic) OUTPATIENT [id number] Notes Entered by: DARLINE SILVEIRA 08 Jul 2019 0940 ------- ------- ------- ------- -- MAIKOL DE LA TORRE 07/08 Released w/o Limitations [employer]([facility] Ops Medicin e_Clini c) [employer] OUTPATIENT [id number] Notes Entered by: Nehemiah MCGARRY 08 Jul 2019 1054 ------- ------- ------- ------- -- Annual Audiogr am MADONNA MCGARRY 07/08 Released w/o Limitations [employer] [employer]([facility] OUTPATIENT [id number] Notes Entered by: CARRINGTON HERRERA 09 Jul 2019 1452 ------- ------- ------- ------- -- LETITIA Mcelroy 07/09 Released w/o Limitations [employer]([facility]) [employer]([facility]) OUTPATIENT [id number] 1 OHE 051A/TRACEY Moy 07/16 Released w/o Limitations [employer]([facility] Flight Medicin e) Theater Facility OUTPATIENT [id number] Theater Provider 03/06 Released w/o Limitations Theater Facilit y [employer]([facility] OUTPATIENT [id number] Toe nail possibl e ingrown . VANITA-LETITIA MEJÍA 05/31 Released w/o Limitations [employer]([facility] Red) [employer]([facility] OUTPATIENT [id number] !(1015) F/u Toenail , possibl e removal KIARA MEDEL 06/06 Released w/o Limitations [employer]([facility]) [employer](Bas e Ops Med Clinic) OUTPATIENT [id number] ZORA 3 CHAD QUINONESSenait Mane 08/17 Released w/o Limitations [facility] Medical Group(B ase Ops Med Clinic) [facility] Medical Group(Fli ght Med Gutierrez) TELE CONSULT [id number] Notes Entered by: NAMRATA QUINONES 20 Feb 2021 1427 ------- ------- ------- ------- -- Civilia n notes in [facility] FANNY QUINONES 02/[address] [facility] Medical Group(F light Med Gutierrez) [facility] Medical Group(Fli ght Med Gutierrez) TELE CONSULT [id number] Notes Entered by: CAITY CASEY 13 Jun 2021 1120 ------- ------- ------- ------- -- Con Leave Request EARL NINA 06/13 Other Not Elsewhere Classified [facility] Medical Group(F light Med Gutierrez) [facility] Medical Group(Bas e Ops Med Clinic) OUTPATIENT [id number] [facility] LAURIE PATTON 09/28 Released w/o Limitations [facility] Medical [facility](B ase Ops Med Clinic) [facility] Medical [facility](Bas e Ops Med Clinic) OUTPATIENT [id number] MIKE-r LAURIE Young 02/28 Released w/o Limitations [facility] Medical [facility](B ase Ops Med Clinic) Theater Facility OUTPATIENT [id number] Theater Provider 07/17 Released w/o Limitations Theater Facilit y Theater Facility OUTPATIENT [id number] Theater Provider 07/18 Released w/o Limitations Theater Facilit y Theater Facility OUTPATIENT [id number] Theater Provider 08/22 Released w/o Limitations Theater Facilit y 8344R-439 [facility] Outpatient [id number] PEPPER PADMINI 02/03 Discharge Disposition: Home or Self Care 8344R-4 39 AMDS 0310C-AF- C-[address] [address] Between Visit [id number] 06/18 Discharge Disposition: Home or Self Care 309C-A F-C h [employer] Dental [id number] SONIA SEGAL 06/30 Discharge Disposition: Home or Self Care -A F-C h [employer] [facility] [employer] Between Visit [id number] 07/13 Discharge Disposition: Home or Self Care 309C-A F-C h [employer] C [facility] Clinic [id number] [facility] er for adminis trative examina tions, unspeci alistair DE LA GARZA 07/16 Discharge Disposition: Home or Self Care -A F- h [facility] Procedures Combined list of: 1) Procedures from Department of Veterans Affairs facilities going back up to thelast 18 months, not all VA non-surgical procedures are included; 2) All procedures from the Department of Defense facilities. Procedure Procedure Type Code Date Perfomer Comments Olga e R shoulder labrum sac repair Jun 2021 [facility] WTEx2 2019 309[facility] PURE TONE AUDIOMTRY THRESHOLD COMPUTER DEV AIR PURE TONE AUDIOMTRY THRESHOLD COMPUTER DEV AIR 0208T [facility] Excision of nail and nail matrix, partial or complete, (eg, ingrown or deformed nail) for permanent removal; Excision of nail and nail matrix, partial or complete, (eg, ingrown or deformed nail) for permanent removal; 29713 309 [facility] Vital signs recorded (includes at minimum: temperature, pulse, respiration, and blood pre ure) Vital signs recorded (includes at minimum: temperature, pulse, respiration, and blood pressure) 309 [facility] PHYS/OTH QUALIFIED HEALTH PRESENTATION MANAGER QUALIFIED,EDUCATION,T RAIN,LICENSURE/REGULA TION (WHEN APPLICABLE) EDUC SER RENDERED TO PATS IN A GRP SETTING (EG,,OBESITY, OR DIABETIC INSTRUCT) 2017 DoD THERAPEUTIC, PROPHYLACTIC, OR DIAGNOSTIC INJECTION (SPECIFY SUBSTANCE OR DRUG); SUBCUTANEOUS OR INTRAMUSCULAR 2017 DoD SCREENING TEST OF VISUAL ACUITY, QUANTITATIVE, BILATERAL 2017 DoD PURE TONE AUDIOMETRY (THRESHOLD); AIR ONLY 2017 DoD NEUROBEHAV STATUS EXAM (CLIN ASSES THINK,REAS&JUDG,[EG,A CQUIR KNOW,ATTEN,LANG,MEM,P EMMANUEL&PROB SOLV&VIS SPATIAL ABIL]),PHYS/OTH QUAL HCP,BOTH JEJD-NE-QYWN TIME W PT &TIME INTERP TST RES [...] OR DEFORMED NAIL), FOR PERMANENT REMOVAL 2018 [facility] ADMINISTRATION OF PATIENT-FOCUSED HEALTH RISK ASSESSMENT INSTRUMENT (EG, HEALTH HAZARD APPRAISAL) WITH SCORING AND DOCUMENTATION, PER STANDARDIZED INSTRUMENT 2018 [facility] BRIEF EMOTIONAL/BEHAVIORAL ASSESSMENT (EG, DEPRESSION INVENTORY, ATTENTION-DEFICIT/HYP ERACTIVITY DISORDER [ADHD] SCALE), WITH SCORING AND DOCUMENTATION, PER STANDARDIZED INSTRUMENT 2018 [facility] PURE TONE AUDIOMETRY (THRESHOLD), AUTOMATED; AIR ONLY 2018 [facility] Physical Therapy Service Evaluation Low Complexity Physical Therapy Service Evaluation Low Complexity 25692 2022 Theater Provider [facility] A isted Exercises For ROM Assisted Exercises For ROM 05616 2022 Theater Provider DoD Determination Of Refractive State Determination Of Refractive State 65071 2018 MAX MACIAS Spectacles Services Fitting Monofocal Except For Aphakia Spectacles Services Fitting Monofocal Except For Aphakia 52904 2018 MAX MACIAS Ophthalmological New Patient Start Comprehensive Care Ophthalmological New Patient Start Comprehensive Care 59163 2018 MAX MACIAS Part Permanent Excis Nail, Matrix L First Toe Lateral Border Part Permanent Excis Nail, Matrix L First Toe Lateral Border 51966 2018 KIARA MEDEL [facility] Preventive Medicine Administration Of Health Risk Questionnaire Patient-Focused Preventive Medicine Administration Of Health Risk Questionnaire Patient-Focused 86328 2018 OBDULIO PARMAR [facility] Psychometric Emotional / Behavioral A e ment Psychometric Emotional / Behavioral Assessment 91884 2018 CUAUHTEMOC RICHARDS Preventive Medicine Administration Of Health Risk Questionnaire Patient-Focused Preventive Medicine Administration Of Health Risk Questionnaire Patient-Focused 88936 2018 CUAUHTEMOC RICHARDS Internet Med Svc Qual Nonphys Healthcare Prof Up To 7 Days Estab Patient Internet Med Svc Qual Nonphys Healthcare Prof Up To 7 Days Estab Patient 78810 2018 CUAUHTEMOC RICHARDS Threshold Audiogram (Pure Tone) Automated Threshold Audiogram (Pure Tone) Automated 0208T 2018 ASHLYN PRUETT [facility] Physician Supervised Group Educational Services Physician Supervised Group Educational Services 26646 2017 JOSE ALCALA Physician Supervised Services Provision Of Educational Supplies Physician Supervised Services Provision Of Educational Supplies 22637 2017 JOSE ALCALA [facility] Physician Supervised Injection Intramuscular Antibiotic Physician Supervised Injection Intramuscular Antibiotic 60253 2017 ARYAN THOMAS [facility] Screening Test Of Visual Acuity, Quantitative, Bilateral Screening Test Of Visual Acuity, Quantitative, Bilateral [id number] 2017 [facility] Determination Of Refractive State Determination Of Refractive State 26177 2017 GAMAL FERNANDO [facility] Spectacles Services Fitting Monofocal Except For Aphakia Spectacles Services Fitting Monofocal Except For Aphakia 05145 2017 GAMAL FERNANDO [facility] Threshold Audiogram (Pure Tone) Threshold Audiogram (Pure Tone) 63141 2017 KD TERESA [facility] Preventive Medicine Administration Of Health Risk Questionnaire Patient-Focused Preventive Medicine Administration Of Health Risk Questionnaire Patient-Focused 00887 LAURIE PATTON [facility] Brief communication technology-based service, e.g. virtual check-in, [...] minutes of medical discu ion LAURIE PATTON [facility] Only telephonic assessment; visit lasted 15 minutes. [facility] Psychometric Neuropsych Testing Battery Admin By Computer Psychometric Neuropsych Testing Battery Admin By Computer [id number] ALOK SYLVESTER [facility] Performance Of Mental Status Exam - Cognitive Performance Of Mental Status Exam - Cognitive 61115 ALOK SYLVESTER [facility] Psychiatric Diagnostic Evaluation Review of Records and Reports Psychiatric Diagnostic Evaluation Review of Records and Reports 51058 JOSEE FELDER [facility] Threshold Audiogram (Pure Tone) Automated Threshold Audiogram (Pure Tone) Automated 0208T MADONNA MCGARRY [facility] Vital Signs Recorded Vital Signs Recorded TRACYE PACKER [facility] Threshold Audiogram (Pure Tone) Threshold Audiogram (Pure Tone) 99063 TRACEY PACKER [facility] Partial Permanent Excision Nail, Matrix Left First Toe Partial Permanent Excision Nail, Matrix Left First Toe 02495 KIARA MEDEL [facility] Social History Combined list of available smoking, tobacco, and other social history from Department of Defense and Veterans Affairs facilities. Social History Type Response Date Comment [facility] e Sex Representation Male 04/20/2022 Unknow n Organization Tobacco Never-cigarette user Cigarette use:. Never-other tobacco [...] Source Assessment and Plan Extracted from:Title : 422 Author: EDGAR PAINTING PA Date: 07/16/24 1.?Administrative reason for encounter ?Medical clearance completed and no issues were noted. ?ASIMS has been updated. ? Major Vinay. Dmitry Painting,?APA-C ? 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 [employer] ? Shoshana BARBOZA MA ? ? ? Extracted from:Title: PHA/MHA Author: FELIPE RAUSCH NP Date: 11/29/23 Encounter for issue of other medical certificate Reviewed and assessed responses to screening tools, and discussed with the patient. ? AUDIT-C=4 PCL-C=0 PHQ-8=0? ? At this time, no tasking or consults needed. Patient aware of services available (911,??One source, Backend Python Developer Services, Walk in , Walk in ER, [...] at age 33. Compared medications reported by field services analyst to active medication list in S SWATHI and any variances were documented.? ? Any complaints or issues identified while conducting the PHA have been addressed and or referred back to the patients' PCM for care.??membership solicitor advised to follow up with PCM, Behavioral Health, ED/911, or One Source as needed for continuation of care, and/or further evaluation during exacerbations of physical and/or psychological illness or injury. See PHA document for additional information.? ? 20 minutes of total time spent reviewing records, discussing health concerns including mental health, and preventative health measures with Heading Up Machine Operator. ? Extracted from:Title: DoD ZORA3 Author: LAURIE PATTON NP Date: 01/23/23 1.?EXAM/ASSESSMENT, OCCUPATIONAL, TAKE DOWN SORTER PERIODIC HEALTH ASSESSMENT (PHA) This encounter contains [...] enrollment form if registered, and submit to [facility] for record keeping. F/U with PCM as needed for any medical issues related to exposure.? Laurie Patton CTR?COMMUNITY HEALTH DIRECTOR-C [facility] Provider Flight Medicine? ?[facility] [place] [facility] [phone] ? Extracted from:Title: [place] BLAKELY2 and MHA/PHA Author: LAURIE PATTON NP Date: 10/19/22 1.?EXAM/ASSESSMENT, OCCUPATIONAL, TAKE DOWN SORTER PERIODIC HEALTH ASSESSMENT (PHA) This encounter contains [...] EPI [id number] ? 2.?ASSESSMENT, POST-DEPLOYMENT, DOCUMENTED ON [id number] This encounter contains a review of the SM's chronic and active medical conditions since the date of the last deployment on file. SM present for virtual encounter. ? ? 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 ? SM denies any deployment related medical or MH concerns. SM reports that he was informed with a herber that there was potential radiation in the water and sand; SM was instructed today to submit a copy of herber to [facility]. SM also reports exposure to garbage, loud [...] reduction achieving a healthy weight/BMI?(BMI 18.5-25.0); F/U with?PCM/Die Keeper?as needed. ? 4.?History of deployment Registration at [facility] is recommended. Keep enrollment form if registered, and submit to [facility] for record keeping. F/U with PCM as needed for any medical issues related to exposure.? ? Laurie Patton CTR?COMMUNITY HEALTH DIRECTOR-C [facility] Provider Flight Medicine? ?[employer] [place]BO[place]??[address] [facility] [phone] ? 07/31/2024 [id number] Assessment and Plan Extracted from:Title : 422 Author: EDGAR PAINTING PA Date: 07/16/24 1.?Administrative reason for encounter ?Medical clearance completed and no issues were noted. ?ASIMS has been updated. ? Iggy Painting,?APA-C ? 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 [employer] ? Shoshana BARBOZA MA ? ? ? Extracted from:Title: PHA/MHA Author: FELIPE RAUSCH NP Date: 11/29/23 Encounter for issue of other medical certificate Reviewed and assessed responses to screening tools, and discussed with the patient. ? AUDIT-C=4 PCL-C=0 PHQ-8=0? ? At this time, no tasking or consults needed. Patient aware of services available (911,??One source, Backend Python Developer [employer], Walk in , Walk in ER, [...] at age 33. Compared medications reported by field services analyst to active medication list in S SWATHI and any variances were documented.? ? Any complaints or issues identified while conducting the PHA have been addressed and or referred back to the patients' PCM for care.??membership solicitor advised to follow up with PCM, Behavioral Health, ED/911, or One Source as needed for continuation of care, and/or further evaluation during exacerbations of physical and/or psychological illness or injury. See PHA document for additional information.? ? 20 minutes of total time spent reviewing records, discussing health concerns including mental health, and preventative health measures with Heading Up Machine Operator. ? Extracted from:Title: DoD DRHA3 Author: LAURIE PATTON NP Date: 01/23/23 1.?EXAM/ASSESSMENT, OCCUPATIONAL, TAKE DOWN SORTER PERIODIC HEALTH ASSESSMENT (PHA) This encounter contains [...] enrollment form if registered, and submit to [employer] for record keeping. F/U with PCM as needed for any medical issues related to exposure.? Laurie Patton CTR?COMMUNITY HEALTH DIRECTOR-C [facility] Provider Flight Medicine? [employer]?Medical [employer] [place], [place]??[address] [facility] [phone] ? Extracted from:Title: DoD DRHA2 and MHA/PHA Author: LAURIE PATTON NP Date: 10/19/22 1.?EXAM/ASSESSMENT, OCCUPATIONAL, TAKE DOWN SORTER PERIODIC HEALTH ASSESSMENT (PHA) This encounter contains [...] EPI [id number] ? 2.?ASSESSMENT, POST-DEPLOYMENT, DOCUMENTED ON [id number] This encounter contains a review of the SM's chronic and active medical conditions since the date of the last deployment on file. SM present for virtual encounter. ? ? 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 ? SM denies any deployment related medical or MH concerns. SM reports that he was informed with a herber that there was potential radiation in the water and sand; SM was instructed today to submit a copy of herber to [employer]. SM also reports exposure to garbage, loud [...] reduction achieving a healthy weight/BMI?(BMI 18.5-25.0); F/U with?PCM/Die Keeper?as needed. ? 4.?History of deployment Registration at [facility] is recommended. Keep enrollment form if registered, and submit to [facility] for record keeping. F/U with PCM as needed for any medical issues related to exposure.? ? Laurie Patton CTR?COMMUNITY HEALTH DIRECTOR-C [facility] Provider Flight Medicine? [employer] [facility] [place]??[address] [facility] [phone] ? 07/31/2024 737-Candor Functional Status Combined list of recent functional and cognitive assessments recorded at Department of Defense and Veterans Affairs (VA).VA Functional Mabel Measurement (FIM) Scale: 1 = Total Assistance (Subject = 0% +), 2 = Maximal Assistance (Subject = 25% +), 3 = Moderate Assistance (Subject = 50% +), 4 = Minimal Assistance (Subject = 75% +), 5 = Supervision, 6 = Modified Mabel (Device), 7 = Complete Mabel (Timely, Safely). Assessment Date/Time Source Assessment Type Assessment Skill Assessment Score Assessment Details No data available for this section
== END 2024-07-31 13:09 | disposition home or self-care (01) ==
PROVIDERS: PCP Internal Medicine; Visit Provider Internal Medicine
DX: S99.911A Unspecified injury of right ankle, initial encounter (principal); E66.3 Overweight

== ENCOUNTER → 2024-07-31 12:13 | Outpatient (BNVA) | payer OTHER, SELFPAY | PROVIDERS: PCP Internal Medicine; Visit Provider Internal Medicine | DX: S99.911D Unspecified injury of right ankle, subsequent encounter (principal); E66.3 Overweight; Z68.30 Body mass index [BMI] 30.0-30.9, adult; Z71.3 Dietary counseling and surveillance | CPT/HCPCS: 99212 ==

== ENCOUNTER 2024-09-17 10:00 | Outpatient (RCR) | payer OTHER, SELFPAY ==
--- NOTE | 2024-08-12 10:38 | MHC.PT.EP ---
[facility] [place] Office [place] Office [place] Office [address] Michelle Montgomery [address] [phone] F: [phone] F: [phone] F: [phone] F: [phone] Physical Therapy Plan of Care Date of Evaluation: 08/12/24 Date of Surgery: Diagnosis: This is a 24 yo male presenting to skilled PT with a script for injury of R ankle. Assessment: This is a 24 yo male presenting to skilled PT with a script for injury of R ankle. Patient was snowboarding back a few months ago when he experienced a fall. He does not recall how his ankle moved with the fall but he did hear a few painful pops, had swelling throughout the joint and medial ecchymosis. He now has continued restriction at the anterior ankle, pain at the anterior ankle and medial ankle bone. Pain is described as dull, occasional popping and worse in the AM, with running, walking >2 miles, stairs and squatting. He reports that he probably sprained this ankle in the past in high school. He does not do anything for pain management, does recall some slight swelling still and does not wear a brace. He was not referred anywhere but PT so far and has not had any other referrals. Assessment reveals pain that ranges from up to a 5/10 at the worst. Patient demos decreased R ankle ROM, strength of R LE, TTP at medial malleoli and impaired posture with forward head, excessive arches and rounded shoulders. He also demos decreased balance on this limb and slight deviations in gait pattern. Based on functional limitations, impaired QOL and pain tolerance patient is a good candidate for skilled PT 2x/wk for 4wks. Frequency and Duration: The patient will be seen 2x/wk for 4wks Short Term Goals: (in 2 weeks) Patient will improve ankle DF AROM by at least 5 degs without assist Patient will demo good understanding and performance of quad set in multiple different planes without cues from PT for 5/5 SLR in all planes Patient will be I in HEP Snf Goals: (in 4 weeks) Patient will report 75% improvement in balance and strength of LLE as evidenced by reports no of falls or buckling in LE Patient will improve LEFs by 10 points Patient will demo WFL AROM of knee and ankle Patient will report ability to walk/run > 2 miles without pain Pain is no more than a 2/10 at the worst Treatment Plan: Modalities to reduce pain, spasms and effusion. Manual therapy to restore motion and function. Therapeutic exercise to improve strength and flexibility. Neuromuscular re-education for posture and balance. Therapeutic activities to return to functional activities of daily living. Electronically signed by: Halima Samaniego PT Please sign and return to therapist. Thank you for your referral.
--- NOTE | 2024-10-16 14:09 | MHC.PT.DC ---
[facility] [place] [facility] [place] [facility] [place] Office [address] [phone] F: [phone] F: [phone] F: [phone] F: [phone] Physical Therapy Discharge Report Diagnosis: This is a 24 yo male presenting to skilled PT with a script for injury of R ankle. Date of Surgery: Date of Evaluation: 08/12/24 Date of Discharge: 10/16/24 Treatments to Date: 12 Cancellations to Date: 0 No Shows to Date: 0 Discharge Status: Achieved Goals Improved Function Independent with HEP Recommend MD Follow-up Discharge Summary: Pt came to 12 visits of PT. He was able to tolerate dynamic activities and elliptical in the gym. He continued to have pain. PT did educate him on the healing times of ankle injuries. Patient wanted follow up with MD for referral to an ortho. DC to HEP due to skilled PT no longer indicated. Electronically signed by: Halima Samaniego, PT Please sign and return to therapist. Thank you for your referral.
== END 2024-10-16 14:09 | disposition home or self-care (01) ==
LOC: HO.PTCHIC 10:00
PROVIDERS: PCP Internal Medicine; Visit Provider Internal Medicine
DX: S99.911D Unspecified injury of right ankle, subsequent encounter (principal); X58.XXXD Exposure to other specified factors, subsequent encounter
CPT/HCPCS: 97035; 97110; 97112; 97140; 97161; 97162; 97530

== ENCOUNTER 2024-09-29 12:47 | Outpatient (AMB) | payer OTHER, SELFPAY ==
[2024-09-29 12:54] VITALS: BP 120/76; PULSE 71; RESP 18; TEMP 37.1; O2SAT 97; BMI 30.7
--- NOTE | 2024-09-29 12:54 | A.OFFPC_ITS ---
Vital Signs 09/29/24 12:54 Height 6 ft 3 in Weight 246 lb BMI 30.7 BP 120/76 Blood Pressure Location Lt brachial Position Sitting Respiration 18 Pulse 71 Pulse Source Pulse Oximeter Temp 98.8 F Temp Source Oral Pulse Oximetry (%) 97 Oxygen Delivery Method Room Air Intake Visit Reasons: 2 month follow up Intake Note: Ptis here today for 2 months follow up visit. Allergies No Known Allergies Allergy (Verified 09/29/24 12:55) Medication List - Last Reconciled 09/29/24 by Angy Rock MD Wegovy (semaglutide (weight loss)) 0.25 mg (0.5 mL) subcut QWEEK NS Tobacco use date assessed: 09/29/24 Dental Screening Dental Screen Date: 07/31/24 HPI 2 month follow up HPI Details Pt presents for follow-up. He has been taking Wegovy 0.25 mg weekly tolerating medication well but noticed no significantly change in his weight for the last 3 months. Patient has been decreasing caloric intake exercising regularly [facility] Medical History Finger abrasion Knee pain, right Annual physical exam Right shoulder pain Surgical History H/O wisdom tooth extraction Family History Father No problems noted. Mother No problems noted. Social History Household Members Other:: in , family in [place], Housing: [facility] Alcohol intake: current Alcohol intake frequency: a few times a month Patient Tobacco Use Status: Never used Tobacco e-Cigarette/Vaping Use: Never Used service: Yes Current occupational status: employed Current occupation: active /rt hand Cognitive needs: No Hearing needs: No Vision needs: Yes Questionnaire Thrive Questionnaire Date Thrive assessed: 06/05/24 I am a: Patient What is your living situation today?: I have a steady place to live Within the past 12 months, did the food you bought not last and you didn't have the money to get more?: Never true Within the past 12 months, did you worry whether your food would run out before you got money to buy more?: Never true Do you have trouble paying for medicines?: No Do you have trouble getting transportation to medical appointments?: No Do you have trouble paying your heating and electricity bill?: No Do you have trouble taking care of your child, family member or friend?: No Do you have trouble with day-to-day activities such as bathing, preparing meals, shopping, managing finances, etc.?: No Are you currently unemployed and looking for a job?: No Are you interested in more education?: No Please select the resources that you would like help with: None Currently or been in a relationship where the following occur: No concerns reported THRIVE Score: 0 LIDIA-7 AMB Questionnaire LIDIA-7 Date LIDIA - 7 assessed: 06/05/24 Source: Developed by Drs. Rigoberto Michel, Ml Avina, Reece Sierra and colleagues, with an educational cristo from [employer]. Review of Systems Const All systems reviewed & are unremarkable except as noted in HPI and below Eyes Reports no additional complaints ENT Reports no additional complaints Card Reports no additional complaints Resp Reports no additional complaints GI Reports no additional complaints Reports no additional complaints Physical exam (Primary Care) Vital Signs: Last Vital Signs Temp 98.8 F 09/29/24 12:54 Pulse 71 09/29/24 12:54 Resp 18 09/29/24 12:54 BP 120/76 09/29/24 12:54 Pulse Ox 97 09/29/24 12:54 Oxygen Delivery Method Room Air 09/29/24 12:54 BMI result Body Mass Index 30.7 Tobacco/Smoking Status: Tobacco use Status Tobacco use date assessed 09/29/24 09/29/24 12:58 Patient Tobacco Use Status Never used Tobacco 09/29/24 12:58 e-Cigarette/Vaping Use Never Used 09/29/24 12:58 Thrive Assessment: Date of Thrive Assessment Date Thrive assessed 06/05/24 09/29/24 12:58 Currently or been in a relationship where the following occur: No concerns reported HENMT Head: Yes normal to inspection Throat: Yes posterior oropharynx normal Eyes General: appearance normal, both eyes and all related structures Neck Neck: Yes supple Resp Effort & Inspection: normal respiratory effort Auscultation: clear to auscultation bilaterally Cardio Rhythm: regular rhythm Heart sounds: S1 normal heart sound present and S2 normal heart sound present Coding Level of Care Code Est Pt Level 3 (24657) Diagnoses Overweight E66.3 Right shoulder pain M25.511 Assessment & Plan Assessment & Plan (1) Overweight: Comment: BMI 31.1 06/2024 Code(s): E66.3 - Overweight Category: Medical Plan: Increase Wegovy to 0.5 mg weekly, continue well-balanced diet regular physical activity follow-up in 3 months (2) Right shoulder pain: Code(s): M25.511 - Pain in right shoulder Category: Medical Plan: For chronic right shoulder pain referred to physical therapy Orders: Orders PT Evaluation and Treatment Today M25.511 - Pain in right shoulder Medications: New Wegovy (semaglutide (weight loss)) 0.5 mg (0.5 mL) subcut QWEEK 2 mL 3RF NS Discontinued Wegovy (semaglutide (weight loss)) Discontinued Reason: Doctor's Order 0.25 mg (0.5 mL) subcut QWEEK 6 mL 1RF NS
--- OUTSIDE RECORDS SUMMARY | 2024-09-29 14:38 | XMS_ITS | Continuity of Care Document ---
Author Name [facility] Organization [facility] Care Team Providers Care Pot Room Supervisor Name Role Phone [facility] Unavailable Unavailable Problems Combined list of problems from Department of Defense and Veterans Affairs facilities. It does not include entries that were removed or entered in error. Problem Status Onset Date Problem Type Date of Resolution Comments Source Administrative reason for encounter Active 07/16/2024 Diagnosis 0310C-AF-C- [facility] [employer] Personal history of deployment Inactive 08/22/2022 Condition DoD Pain in right knee Inactive 07/17/2022 Condition [facility] ASSESSMENT, POST-DEPLOYMENT, DOCUMENTED ON [id number] Inactive 03/06/2020 Condition DoD History of deployment Active Condition 0310C-AF-C- [facility] [employer] Overweight Active Condition 0310C-AF-C- [facility] [employer] Obesity, unspecified Active Condition DoD Medications Combined [...] ons complet ed 0310C-A F-C-66t h [employer] [employer] Allergies, Adverse Reactions, Alerts Combined list of allergies from Department of Defense and Veterans Affairs facilities. It does not include entries that were removed or entered in error. Substance Category Reaction Severity Reaction type Status Date Reported Comments Source No Known Allergies Drug allergy (disorder) active 10/10/2017 [facility] [place] [address] Immunizations Combined list of available immunizations from the Department of Defense and Veterans Affairs facilities. Immunization Series Date Given Administered By Site Reaction Lot Number CVX Code Drug Node Js Developer Status Comments Source influenza, injectable, quadrivalent- pf 2021 150 GlaxoSmithKli ne complet ed influenza , injectabl e, quadrival ent-pf 03/06/22 Given Ambulat ory Pharmac y influenza, seasonal, injectable 2021 [id number] Unknown complet ed influenza , seasonal, injectabl e 03/06/22 Given Ambulat ory Pharmac y anthrax vaccine 2021 [id number] Emergent Biosolutions complet ed anthrax vaccine 03/01/22 Given Ambulat ory Pharmac y typhoid Vi capsular polysaccharid e vac 2021 [id number] sanofi pasteur complet ed typhoid Vi capsular polysacch aride vac 03/01/22 Given Ambulat ory Pharmac y anthrax vaccine 4 2021 [id number] 24 [facility] ed anthrax vaccine DoD typhoid Vi capsular polysaccharid e vaccine 2 2021 [id number] 101 Sanofi Pasteur (PMC) complet ed typhoid Vi capsular polysacch aride vaccine DoD influenza, seasonal, injectable 2020 [id number] 141 GlaxoSmSuliaKli ga complet ed influenza , seasonal, injectabl e 04/03/21 Given Ambulat ory Pharmac y Influenza, seasonal, injectable 1 2020 [id number] 141 Just Fab (SKB) complet ed Influenza , seasonal, injectabl e DoD COVID Vaccine Moderna 2020 [id number] 207 complet ed COVID Vaccine Moderna 11/11/20 Given Ambulat ory Pharmac y SARS-COV-2 (COVID-19) vaccine, mRNA, spike protein, LNP, preservative free, 100 mcg or 50 mcg dose 2 2020 [id number] 207 [employer] (MOD) complet ed SARS-COV- 2 (COVID-19 ) vaccine, mRNA, spike protein, LNP, preservat akiko free, 100 mcg or 50 mcg dose DoD COVID Vaccine Moderna 2020 [id number] 207 complet ed COVID Vaccine Moderna 10/07/20 Given Ambulat ory Pharmac y SARS-COV-2 (COVID-19) vaccine, mRNA, spike protein, LNP, preservative free, 100 mcg or 50 mcg dose 1 2020 [id number] 207 [employer] (MOD) complet ed SARS-COV- 2 (COVID-19 ) vaccine, mRNA, spike protein, LNP, preservat akiko free, 100 mcg or 50 mcg dose DoD influenza, injectable, quadrivalent- pf 2020 [id number] 150 Seqirus complet ed influenza , injectabl e, quadrival ent-pf 09/05/20 Given Ambulat ory Pharmac y Influenza, injectable, quadrivalent, preservative free 1 2020 [id number] 663 150 Seqirus (SEQ) complet ed Influenza , injectabl e, quadrival ent, preservat akiko free DoD anthrax vaccine 2019 [id number] 24 Emergent Biosolutions complet ed anthrax vaccine 01/10/20 Given Ambulat ory Pharmac y anthrax vaccine 3 2019 [id number] 24 Emergent [employer] [place] (MIP) complet ed anthrax vaccine DoD anthrax vaccine 2019 [id number] 24 Emergent Biosolutions complet ed anthrax vaccine 07/30/19 Given Ambulat ory Pharmac y anthrax vaccine 2 2019 [id number] 24 Emergent [employer] [place] ([facility]) complet ed anthrax vaccine DoD Human Papillomaviru s 9-valent vaccine 2019 [id number] 165 Merck & Company Inc complet ed Human Papilloma virus 9-valent vaccine 06/23/19 Given Ambulat ory Pharmac y anthrax vaccine 2019 [id number] 24 Emergent Biosolutions complet ed anthrax vaccine 06/23/19 Given Ambulat ory Pharmac y typhoid Vi capsular polysaccharid e vac 2019 [id number] 101 sanofi pasteur complet ed typhoid Vi capsular polysacch aride vac 06/23/19 Given Ambulat ory Pharmac y anthrax vaccine 1 2019 [id number] 24 [employer] [place] (MIP) complet ed anthrax vaccine DoD typhoid Vi capsular polysaccharid e vaccine 1 2019 [id number] 101 Sanofi Pasteur (PMC) complet ed typhoid Vi capsular polysacch aride vaccine DoD Human Papillomaviru s 9-valent vaccine 2 2019 [id number] 165 Merck (MSD) complet ed Human Papilloma virus 9-valent vaccine DoD influenza, injectable, quadrivalent- pf 2018 [id number] 150 Seqirus complet ed influenza , injectabl e, quadrival ent-pf 03/13/19 Given Ambulat ory Pharmac y Influenza, injectable, quadrivalent, preservative free 1 2018 [id number] 518 150 Seqirus (SEQ) complet ed Influenza , injectabl e, quadrival ent, preservat akiko free DoD Human Papillomaviru s 9-valent vaccine 2018 [id number] 165 Merck & Company Inc complet ed Human Papilloma virus 9-valent vaccine 07/28/18 Given Ambulat ory Pharmac y Human Papillomaviru s 9-valent vaccine 1 2018 [id number] 165 Merck (MSD) complet ed Human Papilloma [...] ory Pharmac y meningococcal A,C,Y,W-135 (MCV4P) 2017 [id number] 114 sanofi pasteur complet ed meningoco ccal A,C,Y,W-1 35 (MCV4P) 10/04/17 Given Ambulat ory Pharmac y tetanus, diphtheria, acellular pertu is 2017 9PD92 115 [facility] ed tetanus, diphtheri a, acellular pertussis 10/04/17 Given Ambulat ory Pharmac y poliovirus vaccine, inactivated 2017 [id number] 10 sanofi pasteur complet ed polioviru s vaccine, inactivat ed 10/04/17 Given Ambulat ory Pharmac y adenovirus vaccine, live 2017 [id number] 9 143 Teva Pharmaceutica ls complet ed adenoviru s vaccine, live 10/04/17 Given Ambulat ory Pharmac y poliovirus vaccine, inactivated 1 2017 [id number] 10 Sanofi Pasteur ([facility]) complet ed polioviru s vaccine, inactivat ed DoD meningococcal polysaccharid e (groups A, C, Y and W-135) diphtheria toxoid conjugate vaccine (MCV4P) 1 2017 [id number] 114 Sanofi Pasteur ([facility]) complet ed meningoco ccal polysacch aride (groups A, C, Y and W-135) diphtheri a toxoid conjugate vaccine (MCV4P) DoD tetanus toxoid, reduced diphtheria toxoid, and acellular pertu is vaccine, adsorbed 1 2017 [id number] 115 [facility] (SKB) complet ed tetanus toxoid, reduced diphtheri a toxoid, and acellular pertussis vaccine, adsorbed DoD Adenovirus, type 4 and type 7, live, oral 1 2017 [id number] 9 143 [facility] ([facility]) complet ed Adenoviru s, type 4 and type 7, live, oral DoD Influenza, injectable, quadrivalent, preservative free 1 2017 [id number] 150 Just Fab (SKB) complet ed Influenza , injectabl e, [...] Prevention' s HIV diagnostic algorithm. Refer to [facility] Lab Guide for additional information : [email or web address]://[employer]. [facility]/ [email or web address]/EPIL [email or web address]/la b_guide.asp x Testing performed by [employer] opal lamb. 5600A-US [employer] EPILAB Miscellan eous Sendouts Repository Sample Received (01/13/24 2:20 PM) 01/12 N 5600A-US [employer] EPILAB Miscellan eous Sendouts Repository Sample.EPI RECEIVED 10/11 Result Comment: INTERPRETAT ION(S): Performed by: [facility]emi[facility] y [facility] Bldg [address] [place] [id number] 0310A-AF -C-[facility]th [facility] Vital Signs Combined list of inpatient and outpatient Vital Signs from Department of Defense and Veterans Affairs, ranging from 12 months to all on record, depending upon the facility. Vital Sign Value Date Comments Source Respiratory Rate 16 br/min 10/19/2022 17:06:00 9584G-TZ-L-[facility]th [facility] [employer] Peripheral Pulse Rate 69 bpm 10/19/2022 17:06:00 4365R-XK-V-[facility] [employer] [employer] Blood Pressure Manual Automatic 10/19/2022 17:06:00 7881J-KA-I-[facility] [employer] [employer] Mean Arterial Pressure, Calc 94 mm[Hg] 10/19/2022 17:06:00 5262C-JW-G-[facility] [employer] [employer] BP Site Left arm 10/19/2022 17:06:00 9313N-NW-H-[facility] [employer] [employer] Temperature Oral 36.8 Tennille 10/19/2022 17:06:00 8132Q-ER-D-[facility] [employer] [employer] Systolic Blood Pressure 125 mm[Hg] 10/20/19 23 17:06:00 1846H-NW-U-[facility] [employer] Diastolic Blood Pressure 78 mm[Hg] 023 17:06:00 5809K-NL-P-[facility] [employer] Encounters Combined list of: 1) Encounters from Department of Veterans Affairs facilities going backup to the last 18 months, not all VA inpatient encounters are included; 2) Encounters from the Department of Defense facilities going backup to 280 months. Location Location Details Encounter Type Encounter Number Reason For Visit Attending Provider ADM Date DC Date Status Disposition Source [facility] [place] [address](Hea ring Conservat ion, BMT) OUTPATIENT [id number] KD TERESA 10/08 Released w/o Limitations [facility] [place] [address](H earing Conserv ation, BMT) [facility] [place] [address](Opt ometry Clinic BMT [facility]) OUTPATIENT [id number] Notes Entered by: NEIL LANGLEY 08 Oct 2017 09 ------- ------- ------- ------- -- GAMAL MAGALLANESN 10/08 Released w/o Limitations [facility] [place] [address](O ptometr y Clinic BMT [facility]) [facility] [facility] [place] [address]([facility]ly [facility]) OUTPATIENT [id number] Notes Entered by: EDD THOMAS 10 Oct 2017 0900 ------- ------- ------- ------- -- Strep Prophyl axis ARYAN THOMAS 10/10 Released w/o Limitations [facility] [place] [address](T [facility]ly [facility] d) [place] Occupatio nal Health) OUTPATIENT [id number] [facility] MEGHA SCALES 12/24 Released w/o Limitations [place] Occupat ional Health) [place] Hearing Conservat ion) OUTPATIENT [id number] EDUCATI ON and JOSE LONG 01/15 Released w/o Limitations [place] Hearing Conserv ation) [place]) OUTPATIENT [id number] oss/lak enheagiulia /af MEGHA MILLS 02/25 Released w/o Limitations [place]) [employer](a ring Conservat ion Clinic) OUTPATIENT [id number] Notes Entered by: SA JERE PRUETT 04 Jul 2018 1241 ------- ------- ------- ------- -- Annual Audiogr am ASHLYN PRUETT 07/04 Released w/o Limitations [employer](H earing Conserv ation Clinic) [employer] Base Ops Medicine_ Clinic) OUTPATIENT [id number] CUAUHTEMOC RICHARDS 07/04 Released w/o Limitations [employer](L ak Base Ops Medicin e_Clini c) [employer](Lak [facility] Red) OUTPATIENT [id number] Notes Entered by: HANNY MEDEIROS 08 Jul 2018 0826 ------- ------- ------- ------- -- OBDULIO CORTES 07/08 Released w/o Limitations [employer]([facility] Red) [employer]([facility] Flight Medicine) OUTPATIENT [id number] OHE/48 EMS Aircraf t Clotildeu JOHNNY Garcia 07/22 Released w/o Limitations [employer]([facility] Flight Medicin e) [employer]([facility]) OUTPATIENT [id number] 1 toenail infecti on. NAL-NR GLEW, KARISSA V 07/29 Released w/o Limitations [employer]([facility] Red) [employer]([facility] Utilizati on Managemen t) TELE CONSULT [id number] Notes Entered by: CARMELITA BALLESTEROS 30 Jul 2018 1453 ------- ------- ------- ------- -- NAL Call CASASNDRA WREN 07/30 [employer]([facility] Utiliza tion Managem ent) [employer]([facility]) OUTPATIENT [id number] f/u ingrown toenail GLEW, KARISSA V 07/30 Released w/o Limitations [employer]([facility]) [facility]) OUTPATIENT [id number] ongoing ingrown toe nail GLEW, KARISSA V 08/08 Released w/o Limitations [employer]([facility]) [facility]) OUTPATIENT [id number] toenail removal KIARA MEDEL W 08/08 Released w/o Limitations [employer]([facility] Red) [facility] Optometry Clinic) OUTPATIENT [id number] 4 MAX URRUTIA 09/10 Released w/o Limitations [employer]([facility] Optomet [facility]) [facility]) OUTPATIENT [id number] compre ssion in lower back GLEW, KARISSA V 12/08 Released w/o Limitations [employer]([facility] Red) [employer]([facility] Medicine_ Clinic) OUTPATIENT [id number] Notes Entered by: DARLINE SILVEIRA 08 Jul 2019 0940 ------- ------- ------- ------- -- MAIKOL DE LA TORRE 07/08 Released w/o Limitations [employer]([facility] Ops Medicin e_Clini c) [employer] OUTPATIENT [id number] Notes Entered by: Nehemiah MCGARRY 08 Jul 2019 1054 ------- ------- ------- ------- -- Annual Audiogr am MADONNA MCGARRY 07/08 Released w/o Limitations [employer] [employer]([facility]) OUTPATIENT [id number] Notes Entered by: CARRINGTON HERRERA 09 Jul 2019 1452 ------- ------- ------- ------- -- LETITIA Mcelroy 07/09 Released w/o Limitations [employer]([facility]) [employer]([facility]) OUTPATIENT [id number] OHE 051A/TRACEY Moy 07/16 Released w/o Limitations [employer]([facility] Flight Medicin e) Theater Facility OUTPATIENT [id number] Theater Provider 03/06 Released w/o Limitations Theater Facilit y [employer]([facility]) OUTPATIENT [id number] Toe nail possibl e ingrown . VANITA-LETITIA MEJÍA 05/31 Released w/o Limitations [employer]([facility] Red) [employer]([facility]) OUTPATIENT [id number] !(1015) F/u Toenail , possibl e removal KIARA MEDEL 06/06 Released w/o Limitations [employer]([facility]) [employer](Bas e Ops Med Clinic) OUTPATIENT [id number] ZORA [phone] CHAD QUINONESSenait Mane 08/17 Released w/o Limitations [facility](B ase Ops Med Clinic) [facility](Fli ght Med [facility]) TELE CONSULT [id number] Notes Entered by: NAMRATA QUINONES 20 Feb 2021 1427 ------- ------- ------- ------- -- Civilia n notes in [facility] FANNY QUINONES 02/20 [facility](F light Med [facility]) [facility](Fli ght Med [facility]) TELE CONSULT [id number] Notes Entered by: CAITY CASEY 13 Jun 2021 1120 ------- ------- ------- ------- -- Con Leave Request EARL NINA 06/13 Other Not Elsewhere Classified [facility](F light Med [place]) [facility](Bas e Ops Med Clinic) OUTPATIENT [id number] [facility] # LAURIE PATTON 09/28 Released w/o Limitations [facility] Medical [facility](B ase Ops Med Clinic) [facility] Medical [facility](Bas e Ops Med Clinic) OUTPATIENT [id number] 1 MIKE-r LAURIE Young 02/28 Released w/o Limitations [facility] Medical [facility](B ase Ops Med Clinic) Theater Facility OUTPATIENT [id number] Theater Provider 07/17 Released w/o Limitations Theater [facility] OUTPATIENT [id number] Theater Provider 07/18 Released w/o Limitations Theater [facility] Theater [facility] OUTPATIENT [id number] Theater Provider 08/22 Released w/o Limitations Theater Facilit y 8344R-439 [facility]DS Outpatient [id number] PEPPER PADMINI 02/03 Discharge Disposition: Home or Self Care 8344R-4 39 AMDS 0310C-AF- C-[address] [place] [address] Between Visit [id number] 06/18 Discharge Disposition: Home or Self Care 309C-A F-C h [employer] [employer] [facility] [employer] Dental [id number] SONIA SEGAL 06/30 Discharge Disposition: Home or Self Care -A F-C h [employer] [facility] [employer] Between Visit [id number] 07/13 Discharge Disposition: Home or Self Care 309C-A F-C h [employer] C [facility] [employer] [id number] [facility] er for adminis trative examina tions, unspeci alistair DE LA GARZA 07/16 Discharge Disposition: Home or Self Care -A F- h [facility] [employer] Procedures Combined list of: 1) Procedures from Department of Veterans Affairs facilities going back up to thelast 18 months, not all VA non-surgical procedures are included; 2) All procedures from the Department of Defense facilities. Procedure Procedure Type Code Date Perfomer Comments Olga e R shoulder labrum sac repair Jun 2021 [facility] [employer] WTEx2 2019 309[facility] [employer] PURE TONE AUDIOMTRY THRESHOLD COMPUTER DEV AIR PURE TONE AUDIOMTRY THRESHOLD COMPUTER DEV AIR 0208T 309[facility] [employer] Excision of nail and nail matrix, partial or complete, (eg, ingrown or deformed nail) for permanent removal; Excision of nail and nail matrix, partial or complete, (eg, ingrown or deformed nail) for permanent removal; 26708 309 [facility] [employer] Vital signs recorded (includes at minimum: temperature, pulse, respiration, and blood pre ure) Vital signs recorded (includes at minimum: temperature, pulse, respiration, and blood pressure) 309 [facility] [employer] PHYS/OTH QUALIFIED HEALTH MANAGER PAYMENT QUALIFIED,EDUCATION,T RAIN,LICENSURE/REGULA TION (WHEN APPLICABLE) EDUC SER RENDERED TO PATS IN A GRP SETTING (EG,,OBESITY, OR DIABETIC INSTRUCT) 2017 DoD NEUROBEHAV STATUS EXAM (CLIN ASSES THINK,REAS&JUDG,[EG,A CQUIR KNOW,ATTEN,LANG,MEM,P EMMANUEL&PROB SOLV&VIS SPATIAL ABIL]),PHYS/OTH QUAL HCP,BOTH [id number]-TZ-NMTE TIME W PT &TIME INTERP TST RES [...] SCORING AND DOCUMENTATION, PER STANDARDIZED INSTRUMENT 2018 [facility] PURE TONE AUDIOMETRY (THRESHOLD), AUTOMATED; AIR ONLY 2018 [place] Exercises A isted Exercises For ROM Exercises Assisted Exercises For ROM 37435 2022 Theater Provider [facility] Determination Of Refractive State Determination Of Refractive State 93993 2018 MAX MACIAS [employer] Services Fitting Monofocals (Not For Aphakia) [employer] Fitting Monofocals (Not For Aphakia) 95806 2018 MAX MACIAS Ophthalmological New Patient Start Comprehensive Care Ophthalmological New Patient Start Comprehensive Care 52494 2018 MAX MCAIAS Part Permanent Excis Nail, Matrix L First Toe Lateral Border Part Permanent Excis Nail, Matrix L First Toe Lateral Border 35314 2018 KIARA MEDEL Internet Med Svc Qual Nonphys Healthcare Prof Estab Patient Internet Med Sv Qual Nonps Healthcare Prof Estab Patient 17357 2018 CUAUHTEMOC RICHARDS Threshold Audiogram (Pure Tone) Automated Threshold Audiogram (Pure Tone) Automated 0208T [address].-Supervised Group Educational Services -Supervised Group Educational Services [address]Supervised Services Provision Of Educational Supplies -Supervised Services Provision Of Educational Supplies [address] Supervised Injection Intramuscular Antibiotic Supervised Injection Intramuscular Antibiotic 38746 2017 ARYAN THOMAS Screening Test Of Visual Acuity, Quantitative, Bilateral Screening Test Of Visual Acuity, Quantitative, Bilateral 24111 2017 GAMAL FERNANDO Determination Of Refractive State Determination Of Refractive State 42397 2017 GAMAL FERNANDO [employer] Fitting Monofocals (Not For Aphakia) [employer] Fitting Monofocals (Not For Aphakia) 47664 2017 GAMAL FERNANDO Threshold Audiogram (Pure Tone) Threshold Audiogram (Pure Tone) 03475 2017 KD TERESA [facility] Brief communication technology-based service, e.g. virtual [...] available appointment; 5-10 minutes of medical discu LAURIE Pedroza Senait Only telephonic assessment; visit lasted 15 minutes. [facility] Psychometric Neuropsych Testing Battery Admin By Computer Psychometric Neuropsych Testing Battery Admin By Computer 78261 ALOK SYLVESTER [facility] Performing Mental Status Exam - Cognitive Performing Mental Status Exam - Cognitive 37136 ALOK SYLVESTER [facility] Psychiatric Evaluation Review of Records and Reports Psychiatric Evaluation Review of Records and Reports 08686 JOSEE FELDER [facility] Threshold Audiogram (Pure Tone) Automated Threshold Audiogram (Pure Tone) Automated 0208T MADONNA MCGARRY [facility] Preventive Medicine Physical Exam Vital Signs Recorded Preventive Medicine Physical Exam Vital Signs Recorded TRACEY PACKER [facility] Threshold Audiogram (Pure Tone) Threshold Audiogram (Pure Tone) 47659 TRACEY PACKER [facility] Partial Permanent Excision Nail, Matrix Left First Toe Partial Permanent Excision Nail, Matrix Left First Toe 90736 KIARA MEDEL [facility] Social History Combined list of available smoking, tobacco, and other social history from Department of Defense and Veterans Affairs facilities. Social History Type Response Date Comment [facility] e Sex Representation Male (finding) 04/20/2022 Un known Organization Tobacco Never-cigarette user Cigarette use:. Never-other [...] ? Iggy Painting,?APA-C ? Aerospace Medicine Physician Corporate Counsel/DISCHARGE COORDINATOR ? [employer] ? Shoshana BARBOZA MA ? ? ? Extracted from:Title: PHA/MHA Author: FELIPE RAUSCH NP Date: 11/29/23 Encounter for issue of other medical certificate Reviewed and assessed responses to screening tools, and discussed with the patient. ? AUDIT-C=4 PCL-C=0 PHQ-8=0? ? At this time, no tasking or consults needed. Patient aware of services available (911,??One [facility], Senior Network Systems Engineer Services, Walk in , Walk in ER, [...] at age 33. Compared medications reported by customer service specialist to active medication list in S SWATHI and any variances were documented.? ? Any complaints or issues identified while conducting the PHA have been addressed and or referred back to the patients' PCM for care.??fast food team member advised to follow up with PCM, Behavioral Health, ED/911, or [facility] as needed for continuation of care, and/or further evaluation during exacerbations of physical and/or psychological illness or injury. See PHA document for additional information.? ? 20 minutes of total time spent reviewing records, discussing health concerns including mental health, and preventative health measures with Director Of Infection Prevention. ? 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 F/U with PCM as needed for any medical issues related to exposure.? Laurie Patton CTR?GERICARE AIDE TEACHER-C [facility] Provider Flight Medicine? [address] [place], [place]??[address] [facility] [phone] ? 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 2.?ASSESSMENT, POST-DEPLOYMENT, DOCUMENTED ON [id number] This encounter contains a review of the [...] to submit a copy of herber to [employer]. SM also reports exposure to garbage, loud [...] reduction achieving a healthy weight/BMI?(BMI 18.5-25.0); F/U with?PCM/[employer] Technical Lead Senior Developer?as needed. ? 4.?History of deployment Registration at [facility] is recommended. Keep enrollment form if registered, and submit to [employer] for record keeping. F/U with PCM as needed for any medical issues related to exposure.? ? Laurie Patton CTR?GERICARE AIDE TEACHER-C [facility] [place] Flight Medicine? ?[employer] [place]??[address] Office- [phone] ? 09/29/2024 [id number] Assessment and Plan Extracted from:Title : 422 Author: EDGAR PAINTING PA Date: 07/16/24 1.?Administrative reason for encounter ?Medical clearance completed and no issues were noted. ?ASIMS has been updated. ? Iggy Painting,?APA-C ? Aerospace Medicine Physician Corporate Counsel/DISCHARGE COORDINATOR ? Medical [employer] ? Shoshana BARBOZA MA ? ? ? Extracted from:Title: PHA/MHA Author: FELIPE RAUSCH NP Date: 11/29/23 Encounter for issue of other medical certificate Reviewed and assessed responses to screening tools, and discussed with the patient. ? AUDIT-C=4 PCL-C=0 PHQ-8=0? ? At this time, no tasking or consults needed. Patient aware of services available (911,??[facility], Senior Network Systems Engineer Services, Walk in , Walk in ER, [...] at age 33. Compared medications reported by customer service specialist to active medication list in [facility] and any variances were documented.? ? Any complaints or issues identified while conducting the PHA have been addressed and or referred back to the patients' PCM for care.??fast food team member advised to follow up with PCM, Behavioral Health, ED/911, or [facility] as needed for continuation of care, and/or further evaluation during exacerbations of physical and/or psychological illness or injury. See PHA document for additional information.? ? 20 minutes of total time spent reviewing records, discussing health concerns including mental health, and preventative health measures with Director Of Infection Prevention. ? 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 F/U with PCM as needed for any medical issues related to exposure.? Laurie Patton CTR?GERICARE AIDE TEACHER-C [facility] Provider Flight Medicine? [address] [place]??[address] office- [phone] ? 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 2.?ASSESSMENT, POST-DEPLOYMENT, [place]UMENTED ON [id number] This encounter contains a review of the SM's chronic and active medical conditions since the date of the last deployment on file. SM present for virtual encounter. ? ? 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 ? SM denies any deployment related medical or MH concerns. SM reports that he was informed with a hebrer that there was potential radiation in the water and sand; SM was instructed today to submit a copy of herber to [employer]. SM also reports exposure to garbage, loud [...] reduction achieving a healthy weight/BMI?(BMI 18.5-25.0); F/U with?PCM/[employer] Technical Lead Senior Developer?as needed. ? 4.?History of deployment Registration at [employer] [facility] is recommended. Keep enrollment form if registered, and submit to [employer] for record keeping. F/U with PCM as needed for any medical issues related to exposure.? ? Laurie Patton CTR?GERICARE AIDE TEACHER-C [facility] Provider Flight Medicine? [address] [place]??[address] [facility] [phone] ? 09/29/[address] [place] [address] Functional Status Combined list of recent functional and cognitive assessments recorded at [facility] [employer] [facility] (VA).VA Functional [place] Measurement (FIM) Scale: 1 = Total Assistance (Subject = 0% +), 2 = Maximal Assistance (Subject = 25% +), 3 = Moderate Assistance (Subject = 50% +), 4 = Minimal Assistance (Subject = 75% +), 5 = Supervision, 6 = Modified [place] (Device), 7 = Complete [place] (Timely, Safely). Assessment Date/Time Source Assessment Type Assessment Skill Assessment Score Assessment Details No data available for this section
== END 2024-09-29 14:19 | disposition home or self-care (01) ==
LOC: HO.HMCC 12:48
PROVIDERS: PCP Internal Medicine; Visit Provider Internal Medicine
DX: E66.3 Overweight (principal); M25.511 Pain in right shoulder

== ENCOUNTER → 2024-09-29 12:47 | Outpatient (BNVA) | payer OTHER, SELFPAY | PROVIDERS: PCP Internal Medicine; Visit Provider Internal Medicine | DX: S99.911A Unspecified injury of right ankle, initial encounter (principal); E66.3 Overweight; M25.511 Pain in right shoulder | CPT/HCPCS: 99212 ==